=== PATIENT | female | born 1940 | race Caucasian/White ===

== ENCOUNTER 2017-01-04 19:52 | Inpatient (IN) | payer MEDICARE ==
[~2017-01-04] VITALS: Ht 170.2 cm; Wt 68.6 kg
[~2017-01-04 19:52] MED LIST: ABILIFY2 MG PO; CALTRATE 600 M600 M1 PO; CARDURA1 MG PO; GABAPENTIN100 MG PO; HYZAAR 100-25 T1 TAB PO; MECLIZINE HCL25 MG PO; MOBIC7.5 MG PO; NORVASC2.5 MG PO; RISPERDAL0.25 MG PO; TIAZAC/CARDIZE180 MG PO; XANAX0.25 MG PO; XARELTO20 MG PO
[2017-01-04 21:50] LABS: APPEARANCE CLEAR (CLEAR); BACTERIA FEW /hpf (NONE SEEN); BILIRUBIN NEGATIVE (NEGATIVE); COLOR YELLOW (YELLOW); EPITHELIAL CELLS 0-5 /hpf (0-5); GLUCOSE NEGATIVE (NEGATIVE); KETONE NEGATIVE (NEGATIVE); LEUKOCYTE ESTERASE 1+ (NEGATIVE); NITRITE NEGATIVE (NEGATIVE); PROTEIN NEGATIVE (NEGATIVE); SPECIFIC GRAVITY 1.015 (1.005-1.020); UROBILINOGEN NORMAL (NORMAL)
[2017-01-04 22:07] LABS: BASOPHILS 0.2 % (0.0-2.0); EOSINOPHILS 2.1 % (0-7); HEMATOCRIT 36.7 % (36.0-48.0); HEMOGLOBIN 12.2 g/dL (12-16); IMMATURE GRANULOCYTES 0.2 % (0-5); LYMPHOCYTES 21.5 % (15-50); MCH 33.2 pg (26.0-34.0); MCHC 33.2 g/dL (31.0-37.0); MCV 99.7 fL (80.0-100.0); MEAN PLATELET VOLUME 9.8 fL (7.4-10.4); MONOCYTES 12.6 % (2-11); NEUTROPHILS 63.4 % (40-80); PLATELET COUNT 201 10x3/uL (130-400); RBC 3.68 10x6/uL (4.00-5.40); RDW 12.4 % (11.5-14.5); WBC 8.1 10x3/uL (4.8-10.8)
[2017-01-04 22:25] LABS: ALBUMIN 3.3 g/dL (3.4-5.0); ANION GAP 10.4 mmol/L (8-16); BILIRUBIN - TOTAL 0.44 mg/dL (0.2-1.3); CALCIUM 8.6 mg/dL (8.5-10.1); CARBON DIOXIDE 29.6 mmol/L (21.0-32.0); CREATININE - SERUM 0.8 mg/dL (0.6-1.3); PROTEIN - SERUM 6.3 g/dL (6.4-8.2)
[2017-01-04 22:52] LABS: TROPONIN-I 0.016 ng/mL (0.000-0.060)
[2017-01-04] MEDS ORDERED: CYMBALTA60 MG PO (23:28)
[2017-01-04] MEDS ORDERED: PRINIVIL20 MG PO (23:30)
[2017-01-04] MEDS ORDERED: LOVASTATIN40 MG PO (23:32)
[2017-01-04] MEDS ORDERED: OXYBUTYNIN CHLOR5 MG PO (23:33)
[2017-01-04] MEDS ORDERED: BETAPACE 80 MG80 MG PO (23:34)
[2017-01-04] MEDS ORDERED: NEURONTIN 300300 MG PO (23:35)
[2017-01-04] MEDS ORDERED: AMBIEN10 MG PO (23:39)
[2017-01-04 23:40] VITALS: BP 168/67; Ht 170.2 cm; Wt 68.6 kg
[2017-01-05] VITALS: BP 168/67
[2017-01-05 04:00] VITALS: BP 149/65
--- NOTE | 2017-01-05 07:28 | NUR ---
ASSESSED AT THE TIME OF ADMIT TO ROOM. PT IS ALERT AND ORIENTED, ABLE TO VERBALIZE NEEDS. HER GRANDAUGHTER SPENT THE NIGHT WITH HER AND ASSISTED WITH GOING TO THE BATHROOM ALSO. SHE HAS SLEPT MOST OF THE NIGHT WITH NO DISTRESS NOTED. THE BED IS LOW, RAILS UP X'S 2 WITH THE CALL LIGHT AT HAND.
[2017-01-05 07:40] VITALS: BP 140/53
--- NOTE | 2017-01-05 07:57 | NUR ---
ALERT AND ORIENTED, DENIES NEEDS, NO COMPLAINTS OF WEAKNESS, NO SLURRED SPEACH, NEURO CHECKS WNL, CALL LIGHT IN REACH, BED LOWEST POSITION, WILL CONTINUE TO MONITOR
--- NOTE | 2017-01-05 08:25 | NUR ---
AWAKE AND ALERT AT THIS TIME. EATING BREAKFAST. RESPIRATIONS EVEN AND NON LABORED. FAMILY AT BEDSIDE. DENIES NEEDS AT THIS TIME, CALL LIGHT IN REACH. WILL CONTINUE WITH PLAN OF CARE.
[2017-01-05 15:23] VITALS: BP 139/85
--- NOTE | 2017-01-05 19:55 | NUR ---
PT LYING IN BED TALKING WITH VISITOR, ASSESSMENT COMPLETED, NO ACUTE DISTRESS NOTED, DENIES PAIN OR NEEDS AT THIS TIME, FALL PRECAUTIONS IN PLACE, CL IN REACH, WILL MONITOR
[2017-01-05 20:00] VITALS: BP 116/78
--- NOTE | 2017-01-05 20:34 | NUR ---
PRN ABMIEN GIVEN PER PT REQUEST FOR SLEEP ALONG WITH ROUTINE MEDS, RUDDY WELL, DENIES FURTHER NEEDS, CL IN REACH
--- NOTE | 2017-01-05 23:15 | NUR ---
RESTING WITH EYES CLOSED, RESP WITH EASE, NO DISTRESS NOTED, FALL PRECAUTIONS IN PLACE, CL IN REACH
[2017-01-06] VITALS: BP 133/85
[2017-01-06 04:00] VITALS: BP 122/71
[2017-01-06 06:58] LABS: CALCIUM 8.8 mg/dL (8.5-10.1); CARBON DIOXIDE 28.3 mmol/L (21.0-32.0); CREATININE - SERUM 0.8 mg/dL (0.6-1.3); POTASSIUM - SERUM 3.3 mmol/L (3.5-5.1)
[2017-01-06 08:38] VITALS: BP 128/78
--- NOTE | 2017-01-06 09:39 | NUR ---
PRN BENTYL ADMINISTERED WITH MORNING MEDS PER PT COMPLAINTS OF ABD CRAMPING AND PAIN IN STOMACH OF 01/22. WILL REASSESS. PT UP AMBULATING AROUND ROOM W/O DIFFICULTY. DAUGHTER AT BEDSIDE. BED LOW, CALL LIGHT IN REACH, DENIES NEEDS. CPOC.
[2017-01-06 13:04] VITALS: BP 144/62
[2017-01-06] MEDS ORDERED: PLAVIX75 MG PO (15:06)
[2017-01-06] MEDS ORDERED: BENTYL 20 MG TA20 MG PO (15:06)
[2017-01-06] MEDS ORDERED: K-TAB10 MEQ PO (15:07)
[2017-01-06] MEDS ORDERED: CARAFATE1 G PO (15:07)
--- NOTE | 2017-01-06 17:18 | NUR ---
MEDICATIONS E-SCRIBED TO [facility], WHICH HAS ALREADY CLOSED. MEDS CALLED TO [facility] ON [address] (PER PATIENT REQUEST). SPOKE WITH SYLVIA PHARMACIST.
--- NOTE | 2017-01-12 14:54 | EC ---
PATIENT:LIBIA SIERRA DATE OF SERVICE: 01/04/17 SEX: F MEDICAL RECORD: [id number] DATE OF : 38 LOCATION:[facility] AGE OF PATIENT: 76 ADMISSION DATE: 01/05/17 REFERRING PHYSICIAN: INTERPRETING PHYSICIAN: QUEENIE HAJI M.D. ECHOCARDIOGRAM REPORT ECHO CHARGES 4 ECHO COMPLETE CLINICAL DIAGNOSIS: ECHOCARDIOGRAPHIC MEASUREMENTS (adult normal given) AC root (d.<3.7cm) 3.5 LV Septum d (<1.2 cm> 1.6 Valve Excursion 2.0 LV Septum (systole) 1.9 Left Atria (s.<4.0cm> 3.8 LVPW d(<1.2cm) 1.5 RV (d.<2.3cm) 4.3 LVPW (sytole) 1.9 LV diastole(<5.6CM) 4.9 MV E-F(>70mm/sec) LV systole 3.0 LVOT Diameter 1.6 MV exc.(>10mm) 1.4 Est.ejection fraction (50-75%) Pericardial Effusion N DOPPLER: LVIT A 95.0 E 114 LA RVSP 39 LVOT 119 AOP1/2T Asc. Ao 164 RVOT 90 RA PA 136 AV Gradient Peak 10.73 AV Mean 5.63 AV Area 1.6 MV Gradient Peak 8.73 MV Mean 3.03 MV Area COMMENTS: Monorail Operator: Jessi NUNEZ Log Handler:2 Dr. Haji TAPE# PACS DATE OF SERVICE: 01/05/2017 REFERRING PHYSICIAN: Franck Serrano MD INDICATIONS: TIA, atrial fibrillation. DESCRIPTION: Left ventricle demonstrates left ventricular hypertrophy. No wall motion abnormalities are noted. Estimated ejection fraction is 60%. Mitral valve structures are normal. There is mild regurgitation seen. Left atrium is normal in size. The aortic valve is trileaflet. There is no stenosis or ECHOCARDIOGRAM REPORT [id number] LIBIA SIERRA regurgitation seen. Right ventricle is mildly dilated. Tricuspid valve is normal. There is mild regurgitation noted. Right atrium is normal size. There is no pericardial effusion seen. IMPRESSION: 1. Left ventricular hypertrophy with preserved ejection fraction of 60%. 2. Mild mitral regurgitation. 3. Mild tricuspid regurgitation. TRANSINT:[id number] Voice Confirmation ID: [id number] DOCUMENT ID: [id number] QUEENIE HAJI M.D. at 1454 CC: [id number] DICTATION DATE: 01/05/17 1315 PREMISES TECHNICIAN: 01/05/17 1518 DIS IN 01/06/17 [place] [id number] [place] [id number]
== END 2017-01-06 13:30 | disposition home or self-care (01) | DRG 69 ==
LOC: D.ER 19:52 → OBSVTIME 22:43 → D.MS 22:43
PROVIDERS: Family Medicine; ADMIT Family Medicine
DX: G45.9 Transient cerebral ischemic attack, unspecified (principal); I48.0 Paroxysmal atrial fibrillation; R10.9 Unspecified abdominal pain; I10 Essential (primary) hypertension; E87.6 Hypokalemia; I08.1 Rheumatic disorders of both mitral and tricuspid valves; Z87.891 Personal history of nicotine dependence

== ENCOUNTER 2017-01-07 19:21 | Emergency (ER) | payer MEDICARE ==
[2017-01-04 23:40] VITALS: BMI 23.7
[~2017-01-07 19:21] MED LIST changes: +AMBIEN10 MG PO; +BENTYL 20 MG TA20 MG PO; +BETAPACE 80 MG80 MG PO; +CARAFATE1 G PO; +CYMBALTA60 MG PO; +K-TAB10 MEQ PO; +LOVASTATIN40 MG PO; +NEURONTIN 300300 MG PO; +OXYBUTYNIN CHLOR5 MG PO; +PLAVIX75 MG PO; +PRINIVIL20 MG PO
[2017-01-07 20:06] LABS: HEMATOCRIT 36.1 % (36.0-48.0); HEMOGLOBIN 12.4 g/dL (12-16); MCHC 34.3 g/dL (31.0-37.0); MCV 98.9 fL (80.0-100.0); MEAN PLATELET VOLUME 9.3 fL (7.4-10.4); PLATELET COUNT 211 10x3/uL (130-400); RBC 3.65 10x6/uL (4.00-5.40); RDW 12.6 % (11.5-14.5); WBC 6.8 10x3/uL (4.8-10.8)
[2017-01-07 20:14] LABS: APTT 26.7 SECONDS (22.8-39.4); INR 1.01 (0.85-1.17); PROTIME 13.1 SECONDS (11.6-15.0)
[2017-01-07 20:24] LABS: ALBUMIN 3.3 g/dL (3.4-5.0); ANION GAP 10.7 mmol/L (8-16); BILIRUBIN - TOTAL 0.48 mg/dL (0.2-1.3); CALCIUM 8.9 mg/dL (8.5-10.1); CARBON DIOXIDE 28.5 mmol/L (21.0-32.0); POTASSIUM - SERUM 3.2 mmol/L (3.5-5.1); PROTEIN - SERUM 6.2 g/dL (6.4-8.2)
[2017-01-07 20:25] LABS: CREATININE - SERUM 1.1 mg/dL (0.6-1.3)
[2017-01-07 20:30] LABS: BASOPHILS 1 % (0.0-2.0); EOSINOPHILS 3 % (0-7); LYMPHOCYTES 26 % (15-50); MONOCYTES 14 % (2-11); NEUTROPHILS 54 % (40-80); PLATELET ESTIMATE NORMAL
== END 2017-01-07 21:35 | disposition home or self-care (01) ==
LOC: D.ER 19:21
PROVIDERS: Family Medicine
DX: G45.9 Transient cerebral ischemic attack, unspecified (principal); F17.200 Nicotine dependence, unspecified, uncomplicated; I48.2 Chronic atrial fibrillation; I10 Essential (primary) hypertension

== ENCOUNTER 2017-12-02 10:07 | Emergency (ER) | payer MEDICARE ==
[2017-01-04 23:40] VITALS: BMI 23.7
[2017-12-02 11:05] LABS: ALBUMIN 3.7 g/dL (3.4-5.0); ANION GAP 10.6 mmol/L (8-16); BILIRUBIN - TOTAL 0.65 mg/dL (0.2-1.3); CALCIUM 8.9 mg/dL (8.5-10.1); CARBON DIOXIDE 28.4 mmol/L (21.0-32.0); PROTEIN - SERUM 6.7 g/dL (6.4-8.2)
[2017-12-02 11:46] LABS: APPEARANCE CLEAR (CLEAR); COLOR YELLOW (YELLOW)
[2017-12-02 11:47] LABS: BACTERIA MODERATE /hpf (NONE SEEN); BILIRUBIN NEGATIVE (NEGATIVE); EPITHELIAL CELLS 0-5 /hpf (0-5); GLUCOSE NEGATIVE (NEGATIVE); GRANULAR CAST NONE SEEN /lpf (NONE SEEN); HYALINE CAST OCC /lpf (NONE SEEN); KETONE NEGATIVE (NEGATIVE); MUCUS NONE SEEN /lpf (NONE SEEN); NITRITE NEGATIVE (NEGATIVE); PROTEIN NEGATIVE (NEGATIVE); RED CELLS - URINE OCC /hpf (0-5); SPECIFIC GRAVITY 1.015 (1.005-1.020); SPERMATOZOA NONE SEEN /hpf (NONE SEEN); UROBILINOGEN NORMAL (NORMAL); WHITE CELLS - URINE OCC /hpf (0-5); YEAST NONE SEEN /hpf (NONE SEEN)
== END 2017-12-02 12:32 | disposition home or self-care (01) ==
LOC: D.ER 10:07
PROVIDERS: Nurse Practitioner Family
DX: I10 Essential (primary) hypertension (principal); I48.2 Chronic atrial fibrillation; Z86.73 Personal history of transient ischemic attack (TIA), and cerebral infarction without residual deficits; R00.1 Bradycardia, unspecified; I44.0 Atrioventricular block, first degree

== ENCOUNTER → 2019-04-21 13:52 | Outpatient (CLI) | payer MEDICARE ==
[2017-01-04 23:40] VITALS: BMI 23.7
== END | disposition home or self-care (01) ==
LOC: D.HCCARDIO 13:30
PROVIDERS: ATTEND Internal Medicine Cardiovascular Disease
DX: I48.0 Paroxysmal atrial fibrillation (principal)

== ENCOUNTER 2020-02-07 09:15 | Emergency (ER) | payer MEDICARE ==
[~2020-02-07] VITALS: Ht 170.2 cm; Wt 65.9 kg
[2020-02-07 09:17] VITALS: Ht 170.2 cm; Wt 65.9 kg
[2020-02-07 09:32] LABS: BASOPHILS 0.1 % (0-2); EOSINOPHILS 0.1 % (0-7); HEMATOCRIT 44.2 % (36.0-48.0); IMMATURE GRANULOCYTES 0.7 % (0-5); LYMPHOCYTES 6.3 % (15-50); MCH 34.4 pg (26.0-34.0); MCHC 33.9 g/dL (31.0-37.0); MCV 101.4 fL (80.0-100.0); MEAN PLATELET VOLUME 10.2 fL (7.4-10.4); MONOCYTES 5.7 % (2-11); NEUTROPHILS 87.1 % (40-80); RBC 4.36 10x6/uL (4.00-5.40); RDW 12.8 % (11.5-14.5); WBC 8.6 10x3/uL (4.8-10.8)
[2020-02-07 09:33] LABS: PLATELET COUNT 141 10x3/uL (130-400)
[2020-02-07 09:40] LABS: CALC OSMOLALITY 270 mosm/kg (275-300); CALCIUM 9.2 mg/dL (8.5-10.1); CHLORIDE - SERUM 97 mmol/L (98-107); CREATININE - SERUM 0.9 mg/dL (0.6-1.3); GLUCOSE 127 mg/dL (74-106); POTASSIUM - SERUM 3.7 mmol/L (3.5-5.1); SODIUM 134 mmol/L (136-145); UREA NITROGEN 14 mg/dL (7-18); eGFR NON AFRICAN AMERICAN 64 mL/min (90-120)
[2020-02-07 09:42] LABS: APTT 42.8 SECONDS (22.8-39.4); INR 1.42 (0.85-1.17); PROTIME 17.3 SECONDS (11.6-15.0)
[2020-02-07] MEDS ORDERED: CELEXA20 MG PO (09:56)
[2020-02-07 09:57] LABS: ALBUMIN 4.4 g/dL (3.4-5.0); ALKALINE PHOSPHATASE 119 U/L (30-120); ALT (SGPT) 98 U/L (10-68); BILIRUBIN - TOTAL 1.43 mg/dL (0.2-1.3); CKMB 6.3 U/L (0.0-3.6); CREATINE KINASE 525 UL (21-215); MAGNESIUM - SERUM 1.9 mg/dL (1.8-2.4); PROTEIN - SERUM 8.1 g/dL (6.4-8.2); TROPONIN-I < 0.017 ng/mL (0.000-0.060)
[2020-02-07] MEDS ORDERED: BETAPACE 80 MG80 MG PO (09:57)
[2020-02-07] MEDS ORDERED: OMEPRAZOLE20 M1 PO (09:58)
[2020-02-07] MEDS ORDERED: SYSTANE I (09:58)
[2020-02-07] MEDS ORDERED: COUMADIN5 MG (10:00)
[2020-02-07] MEDS ORDERED: GABAPENTIN100 MG PO (10:01)
[2020-02-07] MEDS ORDERED: HYDROCODON-ACE1 EAC2 PO (12:37)
[2020-02-07 13:45] VITALS: BP 147/85
[2020-02-08] MEDS ORDERED: HYDROCODON-ACE1 EAC7 PO (09:19)
[2020-02-08] MEDS ORDERED: LASIX20 MG PO (09:21)
== END 2020-02-07 13:45 | disposition home or self-care (01) ==
LOC: D.ER 09:15
PROVIDERS: Emergency Medicine
DX: I48.91 Unspecified atrial fibrillation (principal); T14.90XA Injury, unspecified, initial encounter; R74.8 Abnormal levels of other serum enzymes; R42 Dizziness and giddiness; S09.90XA Unspecified injury of head, initial encounter; E07.9 Disorder of thyroid, unspecified; I10 Essential (primary) hypertension; R55 Syncope and collapse; W19.XXXA Unspecified fall, initial encounter; Y93.9 Activity, unspecified; Y92.9 Unspecified place or not applicable; R51 Headache

== ENCOUNTER 2020-02-08 04:31 | Emergency (ER) | payer MEDICARE ==
[~2020-02-08] VITALS: Ht 170.2 cm; Wt 63.6 kg
[~2020-02-08 04:31] MED LIST changes: +CELEXA20 MG PO; +COUMADIN5 MG; +HYDROCODON-ACE1 EAC2 PO; +OMEPRAZOLE20 M1 PO; +SYSTANE I
[2020-02-08 04:32] VITALS: Ht 170.2 cm; Wt 63.6 kg
[2020-02-08 04:51] LABS: BASOPHILS 0.1 % (0-2); EOSINOPHILS 0 % (0-7); HEMATOCRIT 43.2 % (36.0-48.0); HEMOGLOBIN 14.7 g/dL (12-16); IMMATURE GRANULOCYTES 0.2 % (0-5); LYMPHOCYTES 6.9 % (15-50); MCH 33.6 pg (26.0-34.0); MEAN PLATELET VOLUME 9.5 fL (7.4-10.4); MONOCYTES 8.4 % (2-11); NEUTROPHILS 84.4 % (40-80); RBC 4.38 10x6/uL (4.00-5.40); RDW 12.5 % (11.5-14.5)
[2020-02-08 04:52] LABS: MCV 98.6 fL (80.0-100.0); PLATELET COUNT 170 10x3/uL (130-400); WBC 12.5 10x3/uL (4.8-10.8)
[2020-02-08 04:59] LABS: CALC OSMOLALITY 266 mosm/kg (275-300); CALCIUM 9.2 mg/dL (8.5-10.1); CHLORIDE - SERUM 95 mmol/L (98-107); CREATININE - SERUM 1.5 mg/dL (0.6-1.3); GLUCOSE 140 mg/dL (74-106); POTASSIUM - SERUM 3.2 mmol/L (3.5-5.1); SODIUM 130 mmol/L (136-145); UREA NITROGEN 25 mg/dL (7-18); eGFR NON AFRICAN AMERICAN 35 mL/min (90-120)
[2020-02-08 05:00] LABS: INR 1.65 (0.85-1.17); PROTIME 19.3 SECONDS (11.6-15.0)
[2020-02-08 05:02] LABS: BILIRUBIN NEGATIVE (NEGATIVE); GLUCOSE NEGATIVE (NEGATIVE); KETONE MODERATE mg/dL (NEGATIVE); NITRITE NEGATIVE (NEGATIVE); SPECIFIC GRAVITY 1.015 (1.005-1.020); UROBILINOGEN NORMAL (NORMAL)
[2020-02-08 05:03] LABS: WHITE CELLS - URINE 0-5 /hpf (NEGATIVE)
[2020-02-08 05:24] LABS: ALBUMIN 3.7 g/dL (3.4-5.0); ALKALINE PHOSPHATASE 101 U/L (30-120); ALT (SGPT) 81 U/L (10-68); AMYLASE - SERUM 65 U/L (25-115); BILIRUBIN - TOTAL 1.48 mg/dL (0.2-1.3); CREATINE KINASE 612 UL (21-215); LIPASE 106 U/L (73-393); PRO BNP 9308 pg/mL (0-450); PROTEIN - SERUM 7.1 g/dL (6.4-8.2); TROPONIN-I < 0.017 ng/mL (0.000-0.060)
[2020-02-08 05:25] LABS: CKMB 8.7 U/L (0.0-3.6)
[2020-02-08] MEDS ORDERED: HYDROCODON-ACE1 EAC7 PO (09:19)
[2020-02-08] MEDS ORDERED: LASIX20 MG PO (09:21)
[2020-02-08 09:33] VITALS: BP 142/92
== END 2020-02-08 09:34 | disposition home or self-care (01) ==
LOC: D.ER 04:31
PROVIDERS: Emergency Medicine
DX: R31.9 Hematuria, unspecified (principal); R10.9 Unspecified abdominal pain; R94.5 Abnormal results of liver function studies; N17.9 Acute kidney failure, unspecified; I11.0 Hypertensive heart disease with heart failure; I50.9 Heart failure, unspecified; E87.6 Hypokalemia; E87.1 Hypo-osmolality and hyponatremia; S05.11XA Contusion of eyeball and orbital tissues, right eye, initial encounter; N28.0 Ischemia and infarction of kidney; I48.91 Unspecified atrial fibrillation; Z86.73 Personal history of transient ischemic attack (TIA), and cerebral infarction without residual deficits; E07.9 Disorder of thyroid, unspecified

== ENCOUNTER 2020-02-10 13:31 | Inpatient (IN) | payer MEDICARE ==
[~2020-02-10] VITALS: Ht 170.2 cm; Wt 62.5 kg
[~2020-02-10 13:31] MED LIST changes: +HYDROCODON-ACE1 EAC7 PO; +LASIX20 MG PO
--- NOTE | 2020-02-10 14:30 | NUR ---
PT RECEIVED FROM ER REGISTRATION PT DENIES NEEDS RESTING COMFOTABLY ASSESSMENT COMPLETE PER FLOW SHEET. WILL CONTINUE TO MONITOR
[2020-02-10 14:33] VITALS: BP 165/99
[2020-02-10 15:00] VITALS: BP 165/99
--- NOTE | 2020-02-10 16:10 | NUR ---
DR GILMAR JUARES GIVEN UPDATE REGAURDING CONSULT. T ORDER RECEIVED. WILL ADM.
--- NOTE | 2020-02-10 17:12 | NUR ---
PT BACK FROM MRI, PLACED BACK IN BED, NO OTHER NEEDS NOTED
[2020-02-10 18:16] LABS: BASOPHILS 0.1 % (0-2); EOSINOPHILS 0 % (0-7); HEMATOCRIT 43.7 % (36.0-48.0); HEMOGLOBIN 14.8 g/dL (12-16); IMMATURE GRANULOCYTES 0.3 % (0-5); LYMPHOCYTES 8.2 % (15-50); MCH 33.9 pg (26.0-34.0); MCHC 33.9 g/dL (31.0-37.0); MEAN PLATELET VOLUME 9.7 fL (7.4-10.4); MONOCYTES 9.4 % (2-11); PLATELET COUNT 166 10x3/uL (130-400); RBC 4.37 10x6/uL (4.00-5.40); RDW 12.7 % (11.5-14.5)
[2020-02-10 18:36] LABS: APTT 36.1 SECONDS (22.8-39.4); INR 1.65 (0.85-1.17); PROTIME 19.3 SECONDS (11.6-15.0)
[2020-02-10 18:37] LABS: D-DIMER-QUANTITATIVE 1.44 ug/mLFEU (0.20-0.54)
[2020-02-10 18:44] LABS: ANION GAP 11.1 mmol/L (8-16); BILIRUBIN - TOTAL 0.85 mg/dL (0.2-1.3); CALCIUM 8.8 mg/dL (8.5-10.1); CARBON DIOXIDE 31.2 mmol/L (21.0-32.0); CREATININE - SERUM 1.2 mg/dL (0.6-1.3); POTASSIUM - SERUM 3.3 mmol/L (3.5-5.1); PROTEIN - SERUM 6.6 g/dL (6.4-8.2); THYROID STIMULATING HORMONE 0.39 uIU/mL (0.36-3.74)
[2020-02-10 19:00] VITALS: BP 172/96
[2020-02-10 23:00] VITALS: BP 156/100
[2020-02-11] VITALS (15 sets, daily range): BP systolic 107–166; BP diastolic 71–115; Ht 170.2 cm; Wt 62.5 kg
[2020-02-11 03:14] LABS: BASOPHILS 0.1 % (0-2); EOSINOPHILS 0.1 % (0-7); HEMOGLOBIN 14.2 g/dL (12-16); IMMATURE GRANULOCYTES 0.2 % (0-5); LYMPHOCYTES 10.7 % (15-50); MCH 33.7 pg (26.0-34.0); MCHC 33.8 g/dL (31.0-37.0); MCV 99.8 fL (80.0-100.0); MEAN PLATELET VOLUME 9.7 fL (7.4-10.4); MONOCYTES 12.5 % (2-11); NEUTROPHILS 76.4 % (40-80); PLATELET COUNT 177 10x3/uL (130-400); RBC 4.21 10x6/uL (4.00-5.40); RDW 12.7 % (11.5-14.5); WBC 11.2 10x3/uL (4.8-10.8)
[2020-02-11 03:33] LABS: ALBUMIN 2.9 g/dL (3.4-5.0); ANION GAP 12.3 mmol/L (8-16); BILIRUBIN - TOTAL 0.98 mg/dL (0.2-1.3); CALCIUM 8.7 mg/dL (8.5-10.1); CARBON DIOXIDE 29.5 mmol/L (21.0-32.0); CREATININE - SERUM 1.2 mg/dL (0.6-1.3); POTASSIUM - SERUM 3.8 mmol/L (3.5-5.1); PROTEIN - SERUM 6.3 g/dL (6.4-8.2)
--- NOTE | 2020-02-11 07:00 | NUR ---
REPORT RECIEVED, SHIFT ASSESSMENT COMPLETE, PT IS ALERT AND ORIENTED, ON RA WITH 97% O2 SAT, ALL PPP, VSS, CALL LIGHT IN REACH
--- NOTE | 2020-02-11 07:49 | NUR ---
UPDATE GIVEN TO DR. SCHAFER AT THIS TIME, NO NEW ORDERS
--- NOTE | 2020-02-11 07:50 | NUR ---
INFORMED DR. PHILLIPS OF DR. SCHAFER WISH TO SPEAK WITH HIM
--- NOTE | 2020-02-11 08:08 | NUR ---
UPDATE GIVEN TO DR. PHILLIPS, NEW ORDERS RECIEVED,
--- NOTE | 2020-02-11 08:08 | NUR ---
UPDATE GIVEN TO DR. SCHAFER, NEW ORDERS RECIEVED
--- NOTE | 2020-02-11 08:15 | NUR ---
CONSULT CALLED TO DR. WHITING, NEW ORDERS RECIEVED,
--- NOTE | 2020-02-11 11:05 | NUR ---
REASSESSMENT COMPLETE, NO CHANGES NOTED, PT RESTING AT THIS TIME, VSS, CALL LIGHT IN REACH
--- NOTE | 2020-02-11 11:20 | NUR ---
DR. WHITING AT BEDSIDE, UPDATE GIVEN,
[2020-02-11 12:12] LABS: BILIRUBIN NEGATIVE (NEGATIVE); GLUCOSE NEGATIVE (NEGATIVE); KETONE NEGATIVE (NEGATIVE); NITRITE NEGATIVE (NEGATIVE); SPECIFIC GRAVITY 1.005 (1.005-1.020); UROBILINOGEN NORMAL (NORMAL)
[2020-02-11 12:14] LABS: BACTERIA MODERATE /hpf (NEGATIVE); EPITHELIAL CELLS 0-5 /hpf (0-5); RED CELLS - URINE 0-5 /hpf (0-5); WHITE CELLS - URINE 0-5 /hpf (NEGATIVE)
--- NOTE | 2020-02-11 19:00 | NUR ---
SHIFT ASSESSMENT COMPLETED. PT CARE ASSUMED. MONITORS ON AND WORKING, VITALS STABLE. CALL LIGHT WITHIN REACH, SEE FLOW SHEET FOR FURTHER DETAILS. WILL CONTINUE TO OBSERVE.
--- NOTE | 2020-02-11 23:00 | NUR ---
PT TURNED AND REPOSITIONED FOR COMFORT. PT AAO, MONITORS ON AND WORKING, VITALS STABLE. CALL LIGHT WITHIN REACH, PT DROWSY BUT EASY TO AROUSE. SPOKE WITH PTS DAUGHTER, PASSCODE CONFIRMED AND UPDATE PROVIDED. SEE FLOW SHEET FOR FURTHER DETAILS. WILL CONTINUE TO OBSERVE.
[2020-02-12] VITALS (26 sets, daily range): BP systolic 98–183; BP diastolic 49–99
--- NOTE | 2020-02-12 01:00 | NUR ---
PT LYING IN BED RESTING. MONITORS ON AND WORKING, VITALS STABLE. CALL LIGHT WITHIN REACH. WILL CONTINUE TO OBSERVE.
--- NOTE | 2020-02-12 03:00 | NUR ---
NO CHANGES, MONITORS ON AND WORKING, VITALS STABLE, CALL LIGHT WITHIN REACH, SEE FLOW SHEET FOR FURTHER DETAILS, WILL CONTINUE TO OBSERVE.
[2020-02-12 03:23] LABS: BASOPHILS 0.1 % (0-2); EOSINOPHILS 0.3 % (0-7); HEMATOCRIT 45.7 % (36.0-48.0); HEMOGLOBIN 15.3 g/dL (12-16); IMMATURE GRANULOCYTES 0.1 % (0-5); LYMPHOCYTES 17.4 % (15-50); MCH 33.5 pg (26.0-34.0); MCHC 33.5 g/dL (31.0-37.0); MEAN PLATELET VOLUME 9.7 fL (7.4-10.4); MONOCYTES 13.9 % (2-11); NEUTROPHILS 68.2 % (40-80); PLATELET COUNT 190 10x3/uL (130-400); RBC 4.57 10x6/uL (4.00-5.40); RDW 12.8 % (11.5-14.5); WBC 8.6 10x3/uL (4.8-10.8)
[2020-02-12 03:44] LABS: ALBUMIN 3.1 g/dL (3.4-5.0); ANION GAP 8.3 mmol/L (8-16); BILIRUBIN - TOTAL 0.99 mg/dL (0.2-1.3); CALCIUM 8.6 mg/dL (8.5-10.1); CARBON DIOXIDE 32.9 mmol/L (21.0-32.0); CREATININE - SERUM 1.3 mg/dL (0.6-1.3); POTASSIUM - SERUM 3.2 mmol/L (3.5-5.1)
--- NOTE | 2020-02-12 07:00 | NUR ---
TO OR VIA BED.
--- NOTE | 2020-02-12 09:55 | NUR ---
PATIENT PLACED IN HUTCHINSON HEADREST AND PRONE ALL AREAS PADDED SECURED WITH NO IMPINGEMENTS, DR WHITING PRESENT AND ASSISTINGJEFF.
--- NOTE | 2020-02-12 12:00 | NUR ---
OT NOTE: PT IN FOR SURGERY TODAY. WILL ATTEMPT EVAL TOMORROW. SHAHEEN ENCISO, OTR/L
--- NOTE | 2020-02-12 12:36 | NUR ---
1150 RETURNED TO ROOM POST-OP FROM RECOVERY INITIATED FREQUENT VITAL SIGNS
--- NOTE | 2020-02-12 13:10 | NUR ---
1200 ALERT AND ANSWERS APPROPRIATELY ASSESSMENT COMPLETE
--- NOTE | 2020-02-12 13:12 | NUR ---
1208 C/O HEAD PAIN 06/24 TYLENOL #3 1 PO GIVEN
--- NOTE | 2020-02-12 13:13 | NUR ---
1219 SMALL AMOUNT THIN GREEN EMESIS NOTED ASSISTED WITH YANKEUR ORAL SUCTION
--- NOTE | 2020-02-12 13:14 | NUR ---
1209 HYDRALIZINE 10 MG IV GIVEN FOR BP CHARTED
--- NOTE | 2020-02-12 13:18 | NUR ---
1222 BLOOD PRESSURE 183/65 LABETALOL GIVEN IV. SEE MAR
--- NOTE | 2020-02-12 13:19 | NUR ---
1230 BP 160/55 PATIENT RESTING QUIETLY WITH NO DISTRESS NOTED
--- NOTE | 2020-02-12 14:09 | CN ---
PATIENT NAME:LIBIA SIERRA MEDICAL RECORD: [id number] : 38 LOCATION:[facility].2302 ADMIT DATE: 02/10/20 ACCOUNT: [id number] CONSULTING PHYSICIAN: MICHAEL QUISPE MD REFERRING PHYSICIAN: BEHZAD PHILLIPS MD DATE OF CONSULTATION: 02/11/2020 HISTORY OF PRESENT ILLNESS: An 79-year-old female with a history of atrial fibrillation. She was previously on NOAC with Eliquis. Due to financial constraints, was being switched over to Coumadin, had a fall at home. Subsequently, anticoagulation was held, then had a CVA have prompting her admission. She is actually alert and oriented, conversant. Is in underlying atrial fibrillation with controlled rate. We are asked to see her concerning her cardiovascular status. PAST MEDICAL HISTORY: Includes; 1. History of hypertension. 2. Hyperlipidemia. 3. Hypertension. ALLERGIES: PENICILLIN. MEDICATIONS: Typically include Lisinopril 20 mg p.o. b.i.d., Lovastatin 40 every day, sotalol 40 every day, Celexa 20 every day, Neurontin 100 t.i.d., Ambien 10 at bedtime p.r.n. SOCIAL HISTORY: Nonsmoker, nondrinker, previously was able to take care of most of her ADLs. Good family support with daughter. REVIEW OF SYSTEMS: The patient reports easy bruising but reports no swollen glands. The patient reports no fever, no night sweats, no significant weight gain, no significant weight loss. No significant exercise tolerance. The patient reports no dry eyes, no irritation, no vision change. Patient reports no difficulty hearing and no ear pain. Patient reports no frequent nose bleeds or nose and sinus problems. Patient reports on arm pain on exertion. No shortness of breath while lying down. No history of heart murmur. Patient reports no cough, no wheezing or coughing up blood. Patient reports no abdominal pain, no vomiting. Normal appetite. No diarrhea and not vomiting blood. No nausea and no constipation. Patient reports no incontinence. No difficulty urinating. No hematuria. No increased frequency. Patient reports no muscle aches. No weakness, no arthralgias, no back pain. No swelling of the extremities. Patient reports no abnormal mole, no jaundice, no rashes. Reports no loss of consciousness. No weakness and no numbness. No seizures, dizziness, or headaches. The patient reports no depression, no sleep disturbance, feeling safe in a relationship and no alcohol abuse. Patient reports on fatigue. Reports no runny nose or sinus pressure. No itching, no hives, and no frequent sneezing. PHYSICAL EXAMINATION: GENERAL: Pleasant female in no acute distress, appears stated age. VITAL SIGNS: Blood pressure 164/105, pulse 67 and irregular. HEENT: Large ecchymotic area involving the right orbit. NECK: No bruits noted. HEART: Irregular, rate is controlled, II/ systolic ejection murmur. LUNGS: Good air excursion. CONSULT REPORT [id number] LIBIA SIERRA ABDOMEN: Soft, nontender. EXTREMITIES: Pulses are well preserved, 2+ with no edema. 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 With the patient switching from NOAC to warfarin etc., does have some edema via MRI and may require neurosurgery at some point. No contraindication of this. Actually, left ventricular function is normal, so certainly acceptable risk at this point from a cardiovascular standpoint. We will follow with you. Thank you for the consultation. TRANSINT:[id number] Voice Confirmation ID: [id number] DOCUMENT ID: [id number] MICHAEL QUISPE MD at 1409 CC: [id number] DICTATION DATE: 02/11/20 0848 RESOURCE ROOM TEACHER: 02/11/20 1540 ADM IN [place] [id number] [place] [address]
--- NOTE | 2020-02-12 16:08 | MORECARE ---
CASE MANAGEMENT DISCHARGE SUMMARY PATIENT: LIBIA SIERRA UNIT: [id number] ADM DATE: 02/10/20 AGE: 79 : 39 SEX: F ROOM/BED: D.2302 AUTHOR: JAYSHREE HOOD PHYSICIAN: REFERRING PHYSICIAN: BEHZAD PHILLIPS MD DATE OF SERVICE: 02/12/20 Discharge Plan Patient Name: LIBIA SIERRA [facility] [facility] 1940 Planned Disposition: Anticipated Discharge Date: Discharge Date: Expected LOS: Initial Reviewer: [email or web address] Initial Review Date: 02/12/2020 Generated: 02/12/20 5:07 pm DCPIA - Discharge Planning Initial Assessment Updated by [email or web address]: Hali Barrow on 02/12/20 4:04 pm * How many steps to enter\exit or inside your home? 1 w/rail * PCP Dr. Hudson * Pharmacy [facility] on [address] * Preadmission Environment Home Alone * ADLs Independent * Equipment Elevated [place] Seat Rolling Walker Tub Bench * Other Equipment Rollator, Tub/Shower transfer bench * List name and contact numbers for known caregivers / representatives who currently or will assist patient after discharge: Miranda Carmen, Daughter, * Community resources currently utilized None * Additional services required to return to the preadmission environment? Yes * Can the patient safely return to the preadmission environment? Yes * Has this patient been hospitalized within the prior 30 days at any hospital? No Patient Name: LIBIA SIERRA Page [id number] at 1608 All edits/amendments must be made on the electronic document DICTATION DATE: 02/12/20 160 TEST ANALYST: ERIK 02/12/20 160 RPT#: [id number] DC DATE: STATUS: ADM IN [facility] [address] [place] [address] END OF REPORT
--- NOTE | 2020-02-12 16:15 | MORECARE ---
CASE MANAGEMENT DISCHARGE SUMMARY PATIENT: LIBIA SIERRA UNIT: [id number] ADM DATE: 02/10/20 AGE: 79 : 39 SEX: F ROOM/BED: D.2302 AUTHOR: ERWIN,DOC PHYSICIAN: REFERRING PHYSICIAN: BEHZAD PHILLIPS MD DATE OF SERVICE: 02/12/20 Discharge Plan Patient Name: LIBIA SIERRA Facility: [facility]:[place] : 1940 Planned Disposition: Anticipated Discharge Date: Discharge Date: Expected LOS: Initial Reviewer: [email or web address] Initial Review Date: 02/12/2020 Generated: 02/12/20 5:14 pm Comments DCP- Discharge Planning Updated by [id number]: Hali Barrow on 02/12/20 3:[address] Patient Name: LIBIA SIERRA Admission Status: Elective Accout number: [id number] Admission Date: 02-10-2020 : 1940 Admission Diagnosis: Attending: BEHZAD PHILLIPS Current LOS: 2 Anticipated DC Date: Planned Disposition: Primary Insurance: [employer] CHOICE PPO MCR ADVANT Discharge Planning Comments: CM met w/patient and spoke w/patient's daughter, Miranda Carmen, by phone to discuss discharge planning /needs. Patient's daughter states patient lives at home alone and is independent. States home environment is safe. CM discussed IRF, SNF, and Home Health services. Explained that PT and OT will evaluate patient and make recommendations for discharge disposition. Will wait for those evals to determine discharge plan. Daughter in agreement. CM will continue to follow and assist as needed with discharge planning needs. Concrete Panel Installer: Hali Barrow DCPIA - Discharge Planning Initial Assessment Updated by [email or web address]: Hali Barrow on 02/12/20 4:04 pm * How many steps to enter\exit or inside your home? 1 w/rail * PCP Dr. Hudson * Pharmacy [facility] [address] * Preadmission Environment Home Alone * ADLs Independent * Equipment Elevated [place] Seat Rolling Walker Tub Bench * Other Equipment Rollator, Tub/Shower transfer bench * List name and contact numbers for known caregivers / representatives who currently or will assist patient after discharge: Miranda Carmen, Daughter, * Community resources currently utilized None * Additional services required to return to the preadmission environment? Yes * Can the patient safely return to the preadmission environment? Yes * Has this patient been hospitalized within the prior 30 days at any hospital? No Last DP export: 02/12/20 3:08 p Patient Name: LIBIA SIERRA Page [id number] at 1615 All edits/amendments must be made on the electronic document DICTATION DATE: 02/12/201613 ENGINEERING MECHANIC: ERIK 02/12/20 1614 RPT#: [id number] DC DATE: STATUS: ADM IN [facility] [address] [place] [address] END OF REPORT
--- NOTE | 2020-02-12 19:00 | NUR ---
REPORT REC'D, PT CARE ASSUMED. ASSESSMENT COMPLETED. SEE FLOWSHEETS FOR ALL FINDINGS. PT AROUSES EASILY WITH VOICES, C/O NAUSEA. HOB UP.EMESIS BAG PROVIDED. WET WASH CLOTH APPLIED TO FOREHEAD. ZOFRAN 4MGIVP GIVEN PER ORDER. NO EMESIS NOTED. WILL CONT TO MONITOR.
--- NOTE | 2020-02-12 20:15 | NUR ---
PT'S DAUGHTER CALLED FOR UPDATE. UPDATED AND QUESTIONS ANSWERED.
--- NOTE | 2020-02-12 23:00 | NUR ---
REASSESSMENT COMPLETED. SEE FLOWSHEETS FOR ALL FINDINGS. PT RESTING QUIETLY WITHOUT DISTRESS AT THIS TIME. VSS. HEAD INCISIION DRESSING C,D,I. NO S/S OF DRAINAGE NOTED. DENIES NAUSEA AT THIS TIME. CALL LIGHT IN REACH. CPOC.
[2020-02-13] VITALS (23 sets, daily range): BP systolic 110–168; BP diastolic 49–97
--- NOTE | 2020-02-13 03:00 | NUR ---
REASSESSMENT COMPLETED PER FLOWSHEETS. PT AROUSES EASILY WITH VOICES, DENIES ANY DISCOMFORT AT THIS TIME. NO ACUTE CHANGES NOTED IN PT'S STATUS. VSS. CPOC.
[2020-02-13 06:27] LABS: BASOPHILS 0 % (0-2); EOSINOPHILS 0 % (0-7); HEMATOCRIT 41.4 % (36.0-48.0); HEMOGLOBIN 13.5 g/dL (12-16); IMMATURE GRANULOCYTES 0.2 % (0-5); LYMPHOCYTES 6.1 % (15-50); MCH 33.3 pg (26.0-34.0); MCHC 32.6 g/dL (31.0-37.0); MEAN PLATELET VOLUME 9.7 fL (7.4-10.4); MONOCYTES 11.2 % (2-11); NEUTROPHILS 82.5 % (40-80); PLATELET COUNT 224 10x3/uL (130-400); RBC 4.06 10x6/uL (4.00-5.40)
[2020-02-13 06:29] LABS: ANION GAP 9.6 mmol/L (8-16); BILIRUBIN - TOTAL 0.59 mg/dL (0.2-1.3); CALCIUM 8.2 mg/dL (8.5-10.1); CREATININE - SERUM 1.3 mg/dL (0.6-1.3); POTASSIUM - SERUM 3.6 mmol/L (3.5-5.1); PROTEIN - SERUM 6.5 g/dL (6.4-8.2)
[2020-02-13 06:44] LABS: WBC 11.9 10x3/uL (4.8-10.8)
--- NOTE | 2020-02-13 07:58 | NUR ---
PT AWAKE, CABRERA, VSS. ASSISTED WITH CL TRAY. PT RUDDY WELL.
--- NOTE | 2020-02-13 08:48 | NUR ---
Nutrition follow-up: Pt s/p crainiotomy 02/11 Diet advanced to full liquids with Ensure TID at breakfast today Pt did not talk to me at [facility]. Labs reviewed Wt: 138# RDN will monitor pateints po intake and progress.
--- NOTE | 2020-02-13 14:48 | NUR ---
DR WHITING HERE. PT SAT UP ON SIDE OF BED. VERY UNSTEADY ON SIDE OF BED.
--- NOTE | 2020-02-13 17:45 | NUR ---
ASSISTED PT WITH MEAL TRAY SET UP. PT FED SELF APPROX 30% OF MEAL.
--- NOTE | 2020-02-13 20:00 | NUR ---
AWAKE,ALERT,NO COMPLAINTS VOICED. RESP ULABORED. DRESSING INTACT TO POSTERIOR NECK. BANDAID TO LEFT HEAD INTACT WITHOUT DRAINAGE NOTED. CABRERA. CONTRERAS PATENT AND DRAINING CLEAR YELLOW URINE. CL IN REACH
--- NOTE | 2020-02-13 22:10 | NUR ---
lying queitly. states relief with pain med. no distress noted.cl in reach
[2020-02-14] VITALS (20 sets, daily range): BP systolic 104–159; BP diastolic 68–110
--- NOTE | 2020-02-14 00:30 | NUR ---
LYING QUEITLY WITH NO DISTRESS NOTED. CL IN REACH
--- NOTE | 2020-02-14 02:50 | NUR ---
RESTLESS, CONTINUES TO COMPLAIN OF PAIN TO NECK. MORPHINE 2 MG GIVEN IV FOR PAIN RELIEF.CL IN REACH
[2020-02-14 05:07] LABS: ALBUMIN 2.9 g/dL (3.4-5.0); ANION GAP 8.4 mmol/L (8-16); BILIRUBIN - TOTAL 0.71 mg/dL (0.2-1.3); CALCIUM 8.6 mg/dL (8.5-10.1); CARBON DIOXIDE 34.8 mmol/L (21.0-32.0); CREATININE - SERUM 1.1 mg/dL (0.6-1.3); POTASSIUM - SERUM 3.2 mmol/L (3.5-5.1); PROTEIN - SERUM 6.3 g/dL (6.4-8.2)
[2020-02-14 05:17] LABS: BASOPHILS 0.2 % (0-2); EOSINOPHILS 0.5 % (0-7); HEMATOCRIT 43.7 % (36.0-48.0); HEMOGLOBIN 14.3 g/dL (12-16); IMMATURE GRANULOCYTES 0.3 % (0-5); MCH 33.6 pg (26.0-34.0); MCHC 32.7 g/dL (31.0-37.0); MCV 102.8 fL (80.0-100.0); MONOCYTES 13.2 % (2-11); NEUTROPHILS 66.8 % (40-80); PLATELET COUNT 208 10x3/uL (130-400); RBC 4.25 10x6/uL (4.00-5.40); RDW 12.7 % (11.5-14.5); WBC 10.8 10x3/uL (4.8-10.8)
--- NOTE | 2020-02-14 08:27 | NUR ---
PT STATES THAT SHE IS MISERABLE AND WANTS TO GET UP. SAT ON SIDE OF BED. PT SOME UNSTEADY SITTING. SAT FOR 5 MIN AND TOOK BP. BP WNL. PT WANTING TO LAY BACK DOWN. WILL ATTEMPT TO GET OOB TO CHAIR. NAUSEA SOME BETTER BUT SHE " IS NOT READY TO EAT YET."
--- NOTE | 2020-02-14 10:15 | NUR ---
BATH AND LINENS CHANGED. PT FED SELF BREAKFAST AFTER MEAL TRAY SET UP.
--- NOTE | 2020-02-14 10:57 | NUR ---
DR WHITING HERE. DR PHILLIPS HERE.
--- NOTE | 2020-02-14 16:46 | NUR ---
SAT PT ON SIDE OF BED IN ATTEMPTS TO GET TO CHAIR. PT BECAME NAUSEATED WITH SM AMT CL EMESIS. PT ASSISTED BACK TO BED. WILL ASST WITH MEAL TRAY SET UP AFTER NAUSEA SETTLES.
--- NOTE | 2020-02-14 19:00 | NUR ---
REPORT REC'D. ASSESSMENT COMPLETED. DENIES ANY NEEDS AT THIS TIME. MINIMAL-MODERATE ASSIST WITH REPOSITIONING. CALL LIGHT IN REACH
--- NOTE | 2020-02-14 21:00 | NUR ---
FAMILY CALLED, PASSWORD GIVEN, UPDATE GIVEN
--- NOTE | 2020-02-14 23:00 | NUR ---
RE-ASSESSMENT COMPLETED. NO CHANGES SINCE LAST ASSESSMENT
[2020-02-15] VITALS (18 sets, daily range): BP systolic 123–176; BP diastolic 62–108
--- NOTE | 2020-02-15 01:00 | NUR ---
CALL LIGHT IN REACH. VSS
--- NOTE | 2020-02-15 03:00 | NUR ---
RE-ASSESSMENT COMPLETED. NO CHANGES SINCE LAST ASSESSMENT
--- NOTE | 2020-02-15 05:00 | NUR ---
VSS. CALL LIGHT IN REACH. CONFUSED TO TIME AND SITUATION. REQUESTING TO SEE DAUGHTERELLEN
[2020-02-15 06:08] LABS: BASOPHILS 0.2 % (0-2); EOSINOPHILS 0.7 % (0-7); HEMATOCRIT 42.9 % (36.0-48.0); IMMATURE GRANULOCYTES 0.2 % (0-5); LYMPHOCYTES 17.2 % (15-50); MCH 33.3 pg (26.0-34.0); MCHC 32.6 g/dL (31.0-37.0); MCV 101.9 fL (80.0-100.0); MEAN PLATELET VOLUME 8.9 fL (7.4-10.4); MONOCYTES 13.3 % (2-11); NEUTROPHILS 68.4 % (40-80); PLATELET COUNT 218 10x3/uL (130-400); RBC 4.21 10x6/uL (4.00-5.40); RDW 12.5 % (11.5-14.5); WBC 8.4 10x3/uL (4.8-10.8)
[2020-02-15 06:30] LABS: ALBUMIN 2.8 g/dL (3.4-5.0); ANION GAP 7.7 mmol/L (8-16); BILIRUBIN - TOTAL 0.77 mg/dL (0.2-1.3); CALCIUM 8.6 mg/dL (8.5-10.1); CARBON DIOXIDE 31.2 mmol/L (21.0-32.0); CREATININE - SERUM 0.9 mg/dL (0.6-1.3); POTASSIUM - SERUM 3.9 mmol/L (3.5-5.1)
--- NOTE | 2020-02-15 08:41 | NUR ---
PT FEEDING SELF BREAKFAST AFTER MEAL TRAY SET UP AND POSITIONING.
--- NOTE | 2020-02-15 10:28 | NUR ---
PT STOOD AT BS WITH PT. BECAME UNSTEADY. HR INCREASED TO 140BPM AND BACK TO CAF AT REST.REPORTED TO DR SCHAFER.
[2020-02-15 12:40] LABS: % SATURATION 56 % (15-55); IRON 111 ug/dl (35-150); TOTAL IRON BIND CAPACITY 198 ug/dl (260-445); UNSAT IRON BIND CAPACITY 87 ug/dl (150-375)
--- NOTE | 2020-02-15 19:00 | NUR ---
BEDSIDE REPORT RECEIVED, PT CARE ASSUMED. INTRODUCED SELF AND WROTE NAME ON BOARD. VSS, PT LYING IN BED, AAOX4. DENIES ANY NEEDS AT THIS TIME. BED IN LOWEST POSITION, SR X3, CALL LIGHT WITHIN REACH, BED ALARM ON AND FUNCTIONING. WILL CTM.
--- NOTE | 2020-02-15 23:00 | NUR ---
PT LYING IN BED WITH EYES CLOSED, RR EVEN AND NONLABORED, NO S/S OF DISTRESS, AROUSES EASILY TO VOICE. DENIES NEEDS AT THIS TIME. BED IN LOWEST, SRX3, CALL LIGHT WITHIN REACH, BED ALARM ON AND FUNCTIONING. WILL CTM.
--- NOTE | 2020-02-16 02:45 | NUR ---
PT C/O OF LOWER BACK PAIN OF 5, ON A SCALE OF 0-10. OFFERED PRN PAIN MEDICINE, REFUSED. STAT LOCK REMOVED FROM RT THIGH, NEW STAT LOCK PLACED TO LEFT THIGH. REPOSITIONED FOR COMFORT. DENIES ANY NEEDS AT THIS TIME. BED IN LOWEST, SRX3, CALL LIGHT WITHIN REACH. BED ALARM ON AND FUNCTIONING. WILL CTM.
[2020-02-16 03:00] VITALS: BP 168/102
--- NOTE | 2020-02-16 05:20 | NUR ---
BP 183/114. PRN APRESOLINE ADMINISTERED, PER ORDER. NO NEEDS AT THIS TIME. BED IN LOWEST, SRX3, CALL LIGHT WITHIN REACH, BED ALARM ON AND FUNCTIONING. WILL CTM.
--- NOTE | 2020-02-16 05:50 | NUR ---
BP 128/91. DENIES NEEDS AT THIS TIME. BED IN LOWEST, SRX3, CALL LIGHT WITHIN REACH, BED ALARM ON AND FUNCTIONING. WILL CTM.
[2020-02-16 07:00] VITALS: BP 111/65; BP 118/66
--- NOTE | 2020-02-16 07:00 | NUR ---
REC'D REPORT AND RESUMED, AWAKE AND CONFUSED, MOANING '"I WANT TO GO HOME", FOLLOWS DIRECTION DENIES PAIN AT THIS TIME, O2 VIA 3L HF NC, VSS, ASSESSMENT COMPLETED PER FLOWSHEET, WILL CONTINUE WITH POC
--- NOTE | 2020-02-16 07:55 | NUR ---
CALLED TO ROOM, C/O BRIDGES 05/24 AND NAUSEA, TYLENOL #3 AND ZOFRAN 4MG GIVEN PER PRN [place] ORDER,
--- NOTE | 2020-02-16 09:39 | NUR ---
Nutrition follow-up: s/p carniotomy Diet: Regular PO intake ~50% average at meals Labs reviewed Wt: 138# Last BM charted 02/11 Will continue to provide food choices and honor food preferences. Will offer nutritional supplement RDN following.
--- NOTE | 2020-02-16 10:33 | NUR ---
Rehab Prescreening Consult recieved and the chart has been reviewed. She is a good ARU candidate if she is able to participate in the 3 hrs of therapy that is required. She is also [employer] and will require a preauth. Palma Youngblood RN Clinical Liaison, Rehab
--- NOTE | 2020-02-16 10:54 | EC ---
PATIENT:LIBIA SIERRA DATE OF SERVICE: 02/10/20 SEX: F MEDICAL RECORD: [id number] DATE OF : 38 [facility]ATION[facility] AGE OF PATIENT: 79 ADMISSION DATE: 02/10/20 REFERRING PHYSICIAN: INTERPRETING PHYSICIAN: MICHAEL QUISPE MD ECHOCARDIOGRAM REPORT ECHO CHARGES 4 ECHO COMPLETE Date: 02/11/20 CLINICAL DIAGNOSIS: DYSPNEA ECHOCARDIOGRAPHIC MEASUREMENTS (adult normal given) AC root (d.<3.7cm) 3.2 cm LV Septum d (<1.2 cm> 1.5 cm Valve Excursion 1.8 cm LV Septum (systole) 1.7 cm Left Atria (s.<4.0cm> 4.1 cm LVPW d(<1.2cm) 1.5 cm RV (d.<2.3cm) 3.8 cm LVPW (sytole) 1.8 cm LV diastole(<5.6CM) 3.8 cm MV E-F(>70mm/sec) cm LV systole 2.5 cm LVOT Diameter 1.6 cm MV exc.(>10mm) 2.0 cm Est.ejection fraction (50-75%) % DOPPLER: LVIT cm/sec A 29.0 cm/sec E 107.0 cm/sec LA cm/sec RVSP 36 mmHg LVOT 83 cm/sec AOP1/2T m/s Asc. Ao cm/sec RVOT 58 cm/sec RA cm/sec PA 80 cm/sec AV Gradient Peak 5.23 mmHg AV Mean 2.83 mmHg AV Area 1.4 cm MV Gradient Peak 5.85 mmHg MV Mean 1.96 mmHg MV Area cm COMMENTS: Willower: 2 WENDIE NUNEZ Rn Field: 2 Dr. Haji TAPE# PACS Pericardial Effusion N DATE OF SERVICE: Adequate 2D, color flow imaging, spectral Doppler, and M-Mode Mild LVH. LV internal dimension is normal. Wall motion is normal. EF is greater than or equal to 55%. Aortic valve is tricuspid. No evidence of stenosis. Trace AI by color flow imaging. Left atrium is upper limits of normal, though mildly dilated at 4.0 cm. Mitral valve shows no prolapse. Trace MR. Right-sided chambers are grossly normal. Trace TR. ECHOCARDIOGRAM REPORT [id number] LIBIA SIERRA TRANSINT:[id number] Voice Confirmation ID: [id number] DOCUMENT ID: [id number] MICHAEL QUISPE MD at 1054 CC: [id number] DICTATION DATE: 02/12/20 1352 THERAPEUTIC ASSISTANT: 02/12/20 1655 ADM IN [place] [id number] [place] [address]
[2020-02-16 11:00] VITALS: BP 135/83
--- NOTE | 2020-02-16 11:00 | NUR ---
PT/OT AT BEDSIDE, OOB TO CHAIR WITHOUT DIFFICULTY, TOLERATED WITHOUT DIFFICULTY, NO OTHER ACUTE CHANGE FROM PREVIOUS ASSESSMENT
--- NOTE | 2020-02-16 12:06 | NUR ---
OT NOTE: PT DOING WELL TODAY.. LETHARGIC BUT AGREEABLE TO GET UP AND PARITICIPATE IN THERAPY; MIN ASSIST FOR SUPINE TO SIT; SITTING BALANCE UNSUPPORTED IS GOOD.. PT VERY WEAK. TOLERATED EOB SITTING X APPROX 5 MIN THEN PT ATTEMPTING TO LIE BACK DOWN. SHE WAS AGREEABLE TO SIT UP IN CHAIR; TRANSFER WITH MIN ASSIST FROM BED TO CHAIR; PERFORMED SEVERAL SIT TO STANDS TO IMPROVE STRENGTH ( PT REQUIRED MOD ASSIST WITH THESE DUE TO CHAIR BEING LOW TO GROUND)..PT ABLE TO WASH FACE AND HANDS WITH WASH CLOTH AND SET UP; MOD ASSIST WITH UE AND LE BATHING; MAX ASSIST TO MILAD SOCKS. BP CHECKED WHILE PT UP ON EOB..121/74...PT UP IN CHAIR WITH FEET ELEVATED . PROVIDED WARM BLANKET AND PT ALMOST ASLEEP. SHAHEEN ENCISO, OTR/L [id number]
--- NOTE | 2020-02-16 14:55 | MORECARE ---
CASE MANAGEMENT DISCHARGE SUMMARY PATIENT: LIBIA SIERRA UNIT: [id number] ADM DATE: 02/10/20 AGE: 79 : 39 SEX: F ROOM/BED: D.2302 AUTHOR: ERWIN,DOC PHYSICIAN: REFERRING PHYSICIAN: BEHZAD PHILLIPS MD DATE OF SERVICE: 02/16/20 Discharge Plan Patient Name: LIBIA SIERRA Facility: [facility]:[place] : 1940 Planned Disposition: Anticipated Discharge Date: Discharge Date: Expected LOS: Initial Reviewer: [email or web address] Initial Review Date: 02/12/2020 Generated: 02/16/20 3:54 pm DCP- Discharge Planning Updated by [email or web address]: Hali Barrow on 02/12/20 3:[address] Patient Name: LIBIA SIERRA Admission Status: Elective Accout number: [id number] Admission Date: 02-10-2020 : 1940 Admission Diagnosis: Attending: BEHZAD PHILLIPS Current LOS: 2 Anticipated DC Date: Planned Disposition: Primary Insurance: HU[employer]NA CHOICE PPO MCR ADVANT Discharge Planning Comments: CM met w/patient and spoke w/patient's daughter, Miranda Carmen, by phone to discuss discharge planning /needs. Patient's daughter states patient lives at home alone and is independent. States home environment is safe. CM discussed IRF, SNF, and Home Health services. Explained that PT and OT will evaluate patient and make recommendations for discharge disposition. Will wait for those evals to determine discharge plan. Daughter in agreement. CM will continue to follow and assist as needed with discharge planning needs. Dialysis Tech: Hali Barrow DCPIA - Discharge Planning Initial Assessment Updated by [email or web address]: Hali Barrow on 02/12/20 4:04 pm * How many steps to enter\exit or inside your home? 1 w/rail * PCP Dr. Hudson * Pharmacy [facility] on [address] * Preadmission Environment Home Alone * ADLs Independent * Equipment Elevated Tol[place] Seat Rolling Walker Tub Bench * Other Equipment Rollator, Tub/Shower transfer bench * List name and contact numbers for known caregivers / representatives who currently or will assist patient after discharge: Miranda Carmen, Daughter, * Community resources currently utilized None * Additional services required to return to the preadmission environment? Yes * Can the patient safely return to the preadmission environment? Yes * Has this patient been hospitalized within the prior 30 days at any hospital? No External Providers External Provider: [facility] Next Contact Date: Service Request Date: Service Type: Resolution: Reviewer: Comments: Last DP export: 02/12/20 3:15 p Patient Name: LIBIA SIERRA Page [phone] at 1455 All edits/amendments must be made on the electronic document DICTATION DATE: 02/16/201453 ROLLER COASTER ENGINEER: ERIK 02/16/201453 RPT#: [id number] DC DATE: STATUS: ADM IN [facility] [address] [place] [address] END OF REPORT
[2020-02-16 15:00] VITALS: BP 142/86
--- NOTE | 2020-02-16 15:00 | NUR ---
SLEEPING WITH NO SIGN OF DISTRESS, VSS, AROUSABLE TO VERBAL STIMULI, CALL LIGHT IN REACH, NO NEEDS AT THIS TIME
--- NOTE | 2020-02-16 15:50 | NUR ---
OT NOTE: PT REQUIRED MOD A WITH CHAIR TO BED TSF. PT REQUIRE MOD A WITH SIT TO SUPINE. PT COMPLETED FACE HYGIENE WITH MIN A. [phone] THANK YOU,AMBROSIO WEST
--- NOTE | 2020-02-16 16:00 | NUR ---
I AND O'S COMPLETED, REPOSITIONED UP AND TO LEFT SIDE WITH PILLOW TO BACK
[2020-02-16 19:00] VITALS: BP 171/73
--- NOTE | 2020-02-16 21:25 | NUR ---
PATIENT IS AWAKE REQUESTING JELLO. MEDS GIVEN. PATIENT DENIES ANY NEEDS AT THIS TIME. CALL LIGHT WITHIN REACH, BED IN LOW POSITION.
--- NOTE | 2020-02-16 22:10 | MORECARE ---
CASE MANAGEMENT DISCHARGE SUMMARY PATIENT: LIBIA SIERRA UNIT: [id number] ADM DATE: 02/10/20 AGE: 79 : 39 SEX: F ROOM/BED: D.2302 AUTHOR: ERWIN,DOC PHYSICIAN: REFERRING PHYSICIAN: BEHZAD PHILLIPS MD DATE OF SERVICE: 02/16/20 Discharge Plan Patient Name: LIBIA SIERRA Facility: [facility]:[place] : 1940 Planned Disposition: Snf Facility Anticipated Discharge Date: Discharge Date: Expected LOS: Initial Reviewer: [email or web address] Initial Review Date: 02/12/2020 Generated: 02/16/20 11:10 pm DCP- Discharge Planning Updated by [email or web address]: Hali Barrow on 02/12/20 3:[address] Patient Name: LIBIA SIERRA Admission Status: Elective Accout number: [id number] Admission Date: 02-10-2020 : 1940 Admission Diagnosis: Attending: BEHZAD PHILLIPS Current LOS: 2 Anticipated DC Date: Planned Disposition: Primary Insurance: HU[employer]NA CHOICE PPO MCR ADVANT Discharge Planning Comments: CM met w/patient and spoke w/patient's daughter, Miranda Carmen, by phone to discuss discharge planning /needs. Patient's daughter states patient lives at home alone and is independent. States home environment is safe. CM discussed IRF, SNF, and Home Health services. Explained that PT and OT will evaluate patient and make recommendations for discharge disposition. Will wait for those evals to determine discharge plan. Daughter in agreement. CM will continue to follow and assist as needed with discharge planning needs. Parts Salesperson: Hali Barrow DCPIA - Discharge Planning Initial Assessment Updated by [email or web address]: Hali Barrow on 02/12/20 4:04 pm * How many steps to enter\exit or inside your home? 1 w/rail * PCP Dr. Hudson * Pharmacy [facility] on [address] * Preadmission Environment Home Alone * ADLs Independent * Equipment Elevated [place] Seat Rolling Walker Tub Bench * Other Equipment Rollator, Tub/Shower transfer bench * List name and contact numbers for known caregivers / representatives who currently or will assist patient after discharge: Miranda Carmen, Daughter, * Community resources currently utilized None * Additional services required to return to the preadmission environment? Yes * Can the patient safely return to the preadmission environment? Yes * Has this patient been hospitalized within the prior 30 days at any hospital? No Last DP export: 02/16/20 1:55 pm Patient Name: LIBIA SIERRA Page [phone] at 2210 All edits/amendments must be made on the electronic document DICTATION DATE: 02/16/202209 ASPHALT ROLLER PERSON: ERIK 02/16/202209 RPT#: [id number] DC DATE: STATUS: ADM IN [facility] [address] [place] [address] END OF REPORT
--- NOTE | 2020-02-16 22:18 | MORECARE ---
CASE MANAGEMENT DISCHARGE SUMMARY PATIENT: LIBIA SIERRA UNIT: [id number] ADM DATE: 02/10/20 AGE: 79 : 39 SEX: F ROOM/BED: D.2302 AUTHOR: ERWIN,DOC PHYSICIAN: REFERRING PHYSICIAN: BEHZAD PHILLIPS MD DATE OF SERVICE: 02/16/20 Discharge Plan Patient Name: LIBIA SIERRA Facility: [facility]:[place] : 1940 Planned Disposition: Chcf Facility Anticipated Discharge Date: Discharge Date: Expected LOS: Initial Reviewer: [email or web address] Initial Review Date: 02/12/2020 Generated: 02/16/20 11:17 pm Comments DCP- Discharge Planning Updated by [email or web address]: Maggie Conde on 02/16/20 9:[address] CM spoke with patient's daughter Miranda Carmen [phone] and she requested that patient to go to [facility]. CM called facility and spoke with Odalys and they would be awaiting referral. CM faxed clinicals [phone]. CM awaiting determination of acceptance.CM will continue to follow and assist as needed with discharge planning / needs. DCP- Discharge Planning Updated by [email or web address]: Hali Barrow on 02/12/20 3:[address] Patient Name: LIBIA SIERRA Admission Status: Elective Accout number: [id number] Admission Date: 02-10-2020 : 1940 Admission Diagnosis: Attending: BEHZAD PHILLIPS Current LOS: 2 Anticipated DC Date: Planned Disposition: Primary Insurance: HU[employer]NA CHOICE PPO MCR ADVANT Discharge Planning Comments: CM met w/patient and spoke w/patient's daughter, Miranda Carmen, by phone to discuss discharge planning /needs. Patient's daughter states patient lives at home alone and is independent. States home environment is safe. CM discussed IRF, SNF, and Home Health services. Explained that PT and OT will evaluate patient and make recommendations for discharge disposition. Will wait for those evals to determine discharge plan. Daughter in agreement. CM will continue to follow and assist as needed with discharge planning needs. Automatic Tire Tester: Hali Barrow DCPIA - Discharge Planning Initial Assessment Updated by [email or web address]: Hali Barrow on 02/12/20 4:04 pm * How many steps to enter\exit or inside your home? 1 w/rail * PCP Dr. Hudson * Pharmacy [facility] on [address] * Preadmission Environment Home Alone * ADLs Independent * Equipment Elevated [place] Seat Rolling Walker Tub Bench * Other Equipment Rollator, Tub/Shower transfer bench * List name and contact numbers for known caregivers / representatives who currently or will assist patient after discharge: Miranda Carmen, Daughter, * Community resources currently utilized None * Additional services required to return to the preadmission environment? Yes * Can the patient safely return to the preadmission environment? Yes * Has this patient been hospitalized within the prior 30 days at any hospital? No Coverage Notice Reviewer: [id number] Elzbieta Conde Notice Issued Date-Time: 02/16/2020 14:00 Notice Type: Patient Choice Letter Notice Delivered To: Family Member Relationship to Patient: Daughter Digital Marketer Name: Miranda Carmen Delivery Method: PHONE - Phone Beti Days: Prior Verbal Notification: Yes Recipient Understood Notice: Yes Recipient Signature: Med Rec Note Co-signed by Attending: Coverage Notice Comment: [facility] Last DP export: 02/16/20 9:10 pm Patient Name: LIBIA SIERRA Page [phone] at 2218 All edits/amendments must be made on the electronic document DICTATION DATE: 02/16/202216 MANAGER FORENSIC: ERIK 02/16/202216 RPT#: [id number] DC DATE: STATUS: ADM IN [facility] [address] [place] [address] END OF REPORT
[2020-02-16 23:00] VITALS: BP 132/95
--- NOTE | 2020-02-16 23:00 | NUR ---
NO CHANGES IN PATIENT CONDITION. PATIENT REQUESTING ICE WATER. DENIES ANY OTHER NEEDS OR PAIN. CALL LIGHT WITHIN REACH, BED IN LOW POSITION.
--- NOTE | 2020-02-17 01:50 | NUR ---
PATIENT IS CONFUSED AT TIMES. DENIES ANY NEEDS AT THIS TIME. CALL LIGHT WITHIN REACH, BED IN LOW POSITION.
[2020-02-17 03:00] VITALS: BP 129/75
--- NOTE | 2020-02-17 03:00 | NUR ---
NO CHANGES FROM SHIFT ASSESSMENT. CALL LIGHT WITHIN REACH, BED IN LOW POSITION.
[2020-02-17 07:00] VITALS: BP 121/70
--- NOTE | 2020-02-17 07:00 | NUR ---
REC'D REPORT AND RESUMED CARE, SLEEPING AROUSABLE TO VERBAL STIMULI, VSS, DENIES PAIN, STATES VERY HUNGRY, CALL LIGHT IN REACH, ASSESSMENT COMPLETED PER FLOWSHEET,
--- NOTE | 2020-02-17 09:00 | NUR ---
MORNING MEDS GIVEN PER MAR FLOWSHEET, TOLERATED WITHOUT DIFFICULTY
--- NOTE | 2020-02-17 09:25 | NUR ---
OOB TO CHAIR WITH MODERATE ASSIST, TOLERATED WITHOUT DIFFICULTY
--- NOTE | 2020-02-17 10:26 | MORECARE ---
CASE MANAGEMENT DISCHARGE SUMMARY PATIENT: LIBIA SIERRA UNIT: [id number] ADM DATE: 02/10/20 AGE: 79 : 39 SEX: F ROOM/BED: D.2302 AUTHOR: ERWIN,DOC PHYSICIAN: REFERRING PHYSICIAN: BEHZAD PHILLIPS MD DATE OF SERVICE: 02/17/20 Discharge Plan Patient Name: LIBIA SIERRA Facility: [facility]:[place] : 1940 Planned Disposition: Longterm Facility Anticipated Discharge Date: Discharge Date: Expected LOS: Initial Reviewer: [email or web address] Initial Review Date: 02/12/2020 Generated: 02/17/20 11:25 am Comments DCP- Discharge Planning Updated by [email or web address]: Jalyn Boles on 02/17/20 9:[address] Maxine, with [facility] called to verify plan and notified of no imminent DC order. Provided CM contact number for further needed information. DCP- Discharge Planning Updated by [id number]: Maggie Conde on 02/16/20 9:[address] CM spoke with patient's daughter Miranda Carmen [phone] and she requested that patient to go to [facility]. CM called facility and spoke with Odalys and they would be awaiting referral. CM faxed clinicals . CM awaiting determination of acceptance.CM will continue to follow and assist as needed with discharge planning / needs. DCP- Discharge Planning Updated by [id number]: Hali Barrow on 02/12/20 3:[address] Patient Name: LIBIA SIERRA Admission Status: Elective Accout number: [id number] Admission Date: 02-10-2020 : 1940 Admission Diagnosis: Attending: BEHZAD PHILLIPS Current LOS: 2 Anticipated DC Date: Planned Disposition: Primary Insurance: HUMANA CHOICE PPO MCR ADVANT Discharge Planning Comments: CM met w/patient and spoke w/patient's daughter, Miranda Carmen, by phone to discuss discharge planning /needs. Patient's daughter states patient lives at home alone and is independent. States home environment is safe. CM discussed IRF, SNF, and Home Health services. Explained that PT and OT will evaluate patient and make recommendations for discharge disposition. Will wait for those evals to determine discharge plan. Daughter in agreement. CM will continue to follow and assist as needed with discharge planning needs. Fuse Assembler: Hali Danial DCPIA - Discharge Planning Initial Assessment Updated by [id number]: Hali Barrow on 02/12/20 4:04 pm * How many steps to enter\exit or inside your home? 1 w/rail * PCP Dr. Hudson * Pharmacy [facility] on [address] * Preadmission Environment Home Alone * ADLs Independent * Equipment Elevated Tol[place] Seat Rolling Walker Tub Bench * Other Equipment Rollator, Tub/Shower transfer bench * List name and contact numbers for known caregivers / representatives who currently or will assist patient after discharge: Miranda Carmen, Daughter, * Community resources currently utilized None * Additional services required to return to the preadmission environment? Yes * Can the patient safely return to the preadmission environment? Yes * Has this patient been hospitalized within the prior 30 days at any hospital? No Coverage Notice Reviewer: [id number] Elzbieta Conde Notice Issued Date-Time: 02/16/2020 14:00 Notice Type: Patient Choice Letter Notice Delivered To: Family Member Relationship to Patient: Daughter Radiographer Mammographer Name: Miranda Carmen Delivery Method: PHONE - Phone Beti Days: Prior Verbal Notification: Yes Recipient Understood Notice: Yes Recipient Signature: Med Rec Note Co-signed by Attending: Coverage Notice Comment: [facility] Last DP export: 02/16/20 9:18 pm Patient Name: LIBIA SIERRA Page [phone] at 1026 All edits/amendments must be made on the electronic document DICTATION DATE: 02/17/20 1025 NATIONAL SALES MANAGER: ERIK 02/17/20 1025 RPT#: [id number] DC DATE: STATUS: ADM IN [facility] [address] [place] [address] END OF REPORT
[2020-02-17 11:00] VITALS: BP 114/75
--- NOTE | 2020-02-17 11:18 | NUR ---
AMULATED WITH PHYSICAL THERAPY, 100FT, TOLERATED WITHOUT DIFFICULTY
[2020-02-17 15:00] VITALS: BP 113/74
--- NOTE | 2020-02-17 15:20 | NUR ---
OT NOTE: PT REQUIRED MIN A WITH SIT TO STAND. PT COMPLETED CHAIR TO BED TSF WITH CGA/MIN A. PT COMPLETED SIT TO SUPINE WITH MOD A FOR LE MANAGEMENT. PT COMPLETED FACE HYGIENE WITH MIN A. PT IS MORE ALERT TODAY. [id number] THANK YOU,AMBROSIO WEST
--- NOTE | 2020-02-17 16:09 | NUR ---
OT NOTE: PT PERFORMED WELL TODAY. SHE WAS ALREADY UP IN CHAIR. REPORTED FEELING BETTER, HOWEVER, STILL SLIGHTLY CONFUSED AND DISORIENTED. SIT TO STAND WITH MIN ASSIST; ABLE TO AMB APPROX 100 FT WITH OT AND PT ASSIST, GAIT BELT, USE OF WALKER, AND ASSIST FOR EQUIP. TRANSFERRED BACK TO CHAIR WITH MIN ASSIST; ABLE TO PERFORM SIMPLE GROOMING WITH MIN ASSIST; MOD ASSIST FOR DONNING SOCKS AND GOWN. POSITIONED IN CHAIR WITH ALARM AND CALL LIGHT IN PLACE. PHYSICALLY MUCH BETTER TODAY THAN PREVIOUS DAYS. SHAHEEN ENCISO, OTR/L [phone]
[2020-02-17 21:42] VITALS: BP 172/92
[2020-02-18 00:23] VITALS: BP 152/88
--- NOTE | 2020-02-18 03:14 | NUR ---
I have reviewed this patient and I concur with the Shift Assessment completed by the Licensed Practical Nurse today this shift.
--- NOTE | 2020-02-18 03:29 | NUR ---
PT RESTING IN BED. EYES CLOSED. NO SIGNS OF DISTRESS. BREATHING EVEN AND UNLABORED. IV SITE RT IJ DRESSING CLEAN DRY AND INTACT. NO SIGNS OF INFECTION. RT EYE BRUISE. BACK OF HEAD STABLES CLEAN DRY AND INTACT. OPEN TO AIR. LUNG SOUNDS CLEAR. BOWEL SOUNDS ACTIVE. CONTRERAS IN PLACE. WILL CONTINUE PLAN OF CARE. CALL LIGHT IN REACH. BED LOWERED AND LOCKED. BED RAILS UPX2. BED ALARM ON.
[2020-02-18 06:04] VITALS: BP 148/88
--- NOTE | 2020-02-18 07:20 | NUR ---
REC'D IN BED AWAKE AND ORIENTED TO SELF ONLY. RESP EVEN AND UNLABORED WITH NO DISTRESS NOTED. CAN EXPRESS NEEDS AND WANTS. NO C/O NOTED OR VOICED. BRUISING NOTED TO RIGHT EYE. INCISION NOTED TO BACK OF HEAD WITH NOREEN INTACT. WILL CONTINUE TO OBSERVE FOR NEEDS. C/L IN REACH AT BEDSIDE.
[2020-02-18 09:47] VITALS: BP 182/102
[2020-02-18 11:44] LABS: ANION GAP 8.5 mmol/L (8-16); CALCIUM 8.6 mg/dL (8.5-10.1); CREATININE - SERUM 0.9 mg/dL (0.6-1.3); POTASSIUM - SERUM 3.5 mmol/L (3.5-5.1)
[2020-02-18 13:15] LABS: BASOPHILS 0.3 % (0-2); EOSINOPHILS 1.7 % (0-7); HEMATOCRIT 44.2 % (36.0-48.0); HEMOGLOBIN 14.8 g/dL (12-16); IMMATURE GRANULOCYTES 1.1 % (0-5); LYMPHOCYTES 15.9 % (15-50); MCH 34.1 pg (26.0-34.0); MCHC 33.5 g/dL (31.0-37.0); MCV 101.8 fL (80.0-100.0); MEAN PLATELET VOLUME 9.2 fL (7.4-10.4); MONOCYTES 9.8 % (2-11); NEUTROPHILS 71.2 % (40-80); PLATELET COUNT 246 10x3/uL (130-400); RBC 4.34 10x6/uL (4.00-5.40); RDW 12.1 % (11.5-14.5); WBC 7.2 10x3/uL (4.8-10.8)
[2020-02-18 13:17] VITALS: BP 151/77
--- NOTE | 2020-02-18 14:36 | NUR ---
OT NOTE: PT REMAINS SLIGHTLY CONFUSED AND DISORIENTED. MIN ASSIST FOR BED MOB AND EOB SITTING; SIT TO STAND WITH MIN ASSIST; AMB IN ROOM WITH WALKER AND MIN ASSIST.. FREQUENT CUES TO KEEP EYES OPEN..REPORTED SOME MILD DIZZINESS. SLLIGHTLY SLOW TO RESPOND DURING AMBULATION SO ASSISTED PT BACK TO BED. 02 SATS CHECKED AT 97%..PT WAS JUST NOT DOING WELL YESTERDAY. SHAHEEN ENCISO, OTR/L [phone]
--- NOTE | 2020-02-18 14:41 | NUR ---
OT NOTE: PT COMPLETED SUPINE TO SIT WITH MIN A. PT COMPLETED SIT TO STAND WITH MIN A. PT COMPLETED ADL MOB WITH RW REQUIRED CGA. PT COMPLETED FACE HYGIENE WITH SET UP. PT EXHIBITED DECREASED AX TOLERANCE TODAY. VALENTE NOTIFIED NURSING. NURSING NOTED VITALS WERE GOOD. [phone] THANK YOU,AMBROSIO WEST
--- NOTE | 2020-02-18 15:07 | NUR ---
BRUISED RIGHT EYE AND INCISION ON BACK OF PTS HEAD. WOUND CLEAN AND DRY. WOUND CARE WILL MONITOR.
[2020-02-18 17:29] VITALS: BP 171/72
[2020-02-18 20:00] VITALS: BP 182/99
[2020-02-19] VITALS: BP 154/79
--- NOTE | 2020-02-19 01:45 | NUR ---
PT PICKING AT HER NECK, PICC DRESSING ON FLOOR. PT REMINDED OF NEED FOR PICC AND FOR DRESSING TO REMAIN ON. PT STATED SHE FORGOT SHE HAD IT. DRESSING CHANGE PERFORMED. CTM.
--- NOTE | 2020-02-19 02:55 | NUR ---
I have reviewed this patient and I concur with the Shift Assessment completed by the Licensed Practical Nurse today this shift.
[2020-02-19 04:00] VITALS: BP 133/79
[2020-02-19 06:52] LABS: BASOPHILS 0.1 % (0-2); EOSINOPHILS 1.6 % (0-7); HEMATOCRIT 39.9 % (36.0-48.0); HEMOGLOBIN 13.5 g/dL (12-16); IMMATURE GRANULOCYTES 0.4 % (0-5); LYMPHOCYTES 20.2 % (15-50); MCH 33.5 pg (26.0-34.0); MCHC 33.8 g/dL (31.0-37.0); MEAN PLATELET VOLUME 9.3 fL (7.4-10.4); MONOCYTES 11.5 % (2-11); NEUTROPHILS 66.2 % (40-80); PLATELET COUNT 233 10x3/uL (130-400); RBC 4.03 10x6/uL (4.00-5.40); RDW 11.9 % (11.5-14.5)
[2020-02-19 07:19] LABS: ANION GAP 10.2 mmol/L (8-16); CALCIUM 8.7 mg/dL (8.5-10.1); CARBON DIOXIDE 30.2 mmol/L (21.0-32.0); CREATININE - SERUM 0.9 mg/dL (0.6-1.3); POTASSIUM - SERUM 3.4 mmol/L (3.5-5.1)
--- NOTE | 2020-02-19 07:29 | NUR ---
ALERT AND ORIENTED. LUNGS CLEAR BILATERALLY. HEART SOUNDS S1 AND S2 HEARD IN ALL DUMONT. BOWEL SOUNDS ACTIVE X4. BRUSING TO RIGHT EYE. NOREEN X 15 TO BACK OF HEAD. RIGHT IJ PATENT WITHOUT REDNESS. CONTRERAS PATENT DRAINING CLEAR YELLOW URINE. DENIES NEEDS. BED LOW. FALL PRECAUTIONS IN PLACE. CALL SANTAMARIA AND PERSONAL ITEMS IN REACH. WILL CONTINUE TO MONITOR.
--- NOTE | 2020-02-19 08:41 | NUR ---
PATIENT NAUSEATED AND VOMITTED SMALL AMOUNT OF YELLOW LIQUID. PRN ZOFRAN GIVEN. WILL CONTINUE TO MONITOR.
--- NOTE | 2020-02-19 09:14 | NUR ---
SPOKE WITH DR SCHAFER ABOUT STARTING PATIENT'S COUMADIN. STATES OK PER HIM TO START COUMADIN BUT TO DOUBLE CHECK WITH DR WHITING.
--- NOTE | 2020-02-19 09:16 | NUR ---
CALLED DR WHITING. NO ANSWER. LEFT VOICEMAIL TO CALL BACK.
[2020-02-19 09:28] VITALS: BP 171/85
--- NOTE | 2020-02-19 11:37 | OP ---
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 PROCEDURE: Suboccipital craniotomy for resection of necrotic cerebellar hemorrhage and decompression of cerebral aqueduct with decompression of hydrocephalus. SURGEON: Cindy Whiting MD DESCRIPTION AND TECHNIQUE: After induction of general endotracheal anesthesia, the patient was placed in Loera head pins, rolled in a prone position on chest and hip rolls with head of bed up at approximately 30 degrees. The posterior scalp and neck were prepped and draped in the usual sterile fashion. A midline scalp incision was carried out from 2 cm above the inion to the spinous process of C2. Ligamentum nuchae was divided with the Bovie cautery. The left cerebellar convexity was exposed in a subperiosteal manner. Two vince holes were created along the midline just above the inion and 3 cm below that. These were connected with a Midas-Justyn drill using a foot plate attachment. The dura was quite tense after elevation of the flap. The dura was opened in a cruciate manner. There was cerebellar tissue protruding from the cranial wound under pressure. This was evacuated with gentle suction. There was no bleeding due to the fact it was a necrotic avascular tissue. Following evacuation of this portion of the cerebellum on the left hemisphere, the posterior fossa became pulsatile and fluctuated with respirations. CSF was removed from the arachnoid space without difficulty. This appeared to improve the pulsatility further. Next, the dura was reapproximated with 4-0 Nurolon suture. The skull flap was replaced with titanium plates and screws. The ligamentum nuchae and galea were reapproximated with interrupted 2-0 Vicryl suture, the subdermal layer was closed with 3-0 Vicryl suture. The skin was closed with cherry. A sterile dressing was applied to the wound. The patient was awakened in good condition and taken to recovery. All counts were reported as correct. Estimated blood loss was minimal. TRANSINT:[id number] Voice Confirmation ID: [id number] DOCUMENT ID: [id number] OPERATIVE REPORT [id number] LIBIA SIERRA JOHN MD at 1137 CC: [id number] DICTATION DATE: 02/12/20 1050 SHIPPING ORDER CLERK: 02/12/20 1346 ADM IN [facility] [id number] [place] [address]
--- NOTE | 2020-02-19 13:07 | NUR ---
PATIENT REFUSED SECOND DOSE POTASSIUM PER ELECTROLYTE PROTOCOL.
[2020-02-19 13:20] VITALS: BP 156/97
[2020-02-19 15:33] LABS: INR 1.1 (0.85-1.17); PROTIME 14.2 SECONDS (11.6-15.0)
[2020-02-19 16:45] VITALS: BP 169/95
--- NOTE | 2020-02-19 16:51 | NUR ---
OT NOTE: PT REQUIRED CGA FOR SUPINE TO SIT. PT COMPLETED BED TO CHAIR TSF WITH CGA. PT COMPLETED MILAD SOCKS WITH SBA. PT COMPLETED SELF FEEDING TASK WITH SETUP. NOTIFIED HVAC SALES REPRESENTATIVE THAT ALARM SWITCH COULD NOT BE ACCESSED. HVAC SALES REPRESENTATIVE STATED SHE WOULD NOTIFY NURSING. [phone] THANK YOU,AMBROSIO WEST
--- NOTE | 2020-02-19 17:05 | MORECARE ---
CASE MANAGEMENT DISCHARGE SUMMARY PATIENT: LIBIA SIERRA UNIT: [id number] ADM DATE: 02/10/20 AGE: 79 : 39 SEX: F ROOM/BED: D.2219 AUTHOR: JAYSHREE HOOD PHYSICIAN: REFERRING PHYSICIAN: BEHZAD PHILLIPS MD DATE OF SERVICE: 02/19/20 Discharge Plan Patient Name: LIBIA SIERRA Facility: [facility]:[place] : 1940 Planned Disposition: Residential Facility Anticipated Discharge Date: Discharge Date: Expected LOS: Initial Reviewer: [id number] Initial Review Date: 02/12/2020 Generated: 02/19/20 6:05 pm Comments DCP- Discharge Planning Updated by [id number]: Shawnee Regalado on 02/19/20 4:[address] Patient Name: LIBIA SIERRA Admission Status: Elective Accout number: [id number] Admission Date: 02-10-2020 : 1940 Admission Diagnosis:CEREBRAL INFARCTION, UNSPECIFIED Attending: BEHZAD PHILLIPS Current LOS: 9 Anticipated DC Date: Planned Disposition: Residential Facility Primary Insurance: [employer] CHOICE PPO MCR ADVANT Discharge Planning Comments: SPOKE WITH DAUGHTER MIRANDA AND GAVE HER UPDATE. I ALSO SPOKE TO SURENDRA WITH [facility] AND SHOULD HAVE AUTH IN THE MORNING. CM TO FOLLOW AND ASSIST NEEDED. Household Appliance Repairer: Shawnee Regalado DCP- Discharge Planning Updated by [id number]: Jalyn Boles on 02/17/20 9:[address] Maxine, with [facility] called to verify plan and notified of no imminent DC order. Provided CM contact number for further needed information. DCP- Discharge Planning Updated by [email or web address]: Maggie Conde on 02/16/20 9:[address] CM spoke with patient's daughter Miranda Carmen [phone] and she requested that patient to go to [facility]. CM called facility and spoke with Odalys and they would be awaiting referral. CM faxed clinicals . CM awaiting determination of acceptance.CM will continue to follow and assist as needed with discharge planning / needs. DCP- Discharge Planning Updated by [id number]: Hali Barrow on 02/12/20 3:[address] Patient Name: LIBIA SIERRA Admission Status: Elective Accout number: [id number] Admission Date: 02-10-2020 : 1940 Admission Diagnosis: Attending: BEHZAD PHILLIPS Current LOS: 2 Anticipated DC Date: Planned Disposition: Primary Insurance: [employer] CHOICE PPO MCR ADVANT Discharge Planning Comments: CM met w/patient and spoke w/patient's daughter, Miranda Carmen, by phone to discuss discharge planning /needs. Patient's daughter states patient lives at home alone and is independent. States home environment is safe. CM discussed IRF, SNF, and Home Health services. Explained that PT and OT will evaluate patient and make recommendations for discharge disposition. Will wait for those evals to determine discharge plan. Daughter in agreement. CM will continue to follow and assist as needed with discharge planning needs. Household Appliance Repairer: Hali Danial DCPIA - Discharge Planning Initial Assessment Updated by [email or web address]: Hali Barrow on 02/12/20 4:04 pm * How many steps to enter\exit or inside your home? 1 w/rail * PCP Dr. Hudson * Pharmacy [facility] [address] * Preadmission Environment Home Alone * ADLs Independent * Equipment Elevated [place] Seat Rolling Walker Tub Bench * Other Equipment Rollator, Tub/Shower transfer bench * List name and contact numbers for known caregivers / representatives who currently or will assist patient after discharge: Miranda Carmen, Daughter, * Community resources currently utilized None * Additional services required to return to the preadmission environment? Yes * Can the patient safely return to the preadmission environment? Yes * Has this patient been hospitalized within the prior 30 days at any hospital? No Coverage Notice Reviewer: [id number] Elzbieta Conde Notice Issued Date-Time: 02/16/2020 14:00 Notice Type: Patient Choice Letter Notice Delivered To: Family Member Relationship to Patient: Daughter Switch Tender Name: Miranda Carmen Delivery Method: PHONE - Phone Beti Days: Prior Verbal Notification: Yes Recipient Understood Notice: Yes Recipient Signature: Med Rec Note Co-signed by Attending: Coverage Notice Comment: [facility] Last DP export: 02/17/20 9:26 am Patient Name: LIBIA SIERRA Page [phone] at 1705 All edits/amendments must be made on the electronic document DICTATION DATE: 02/19/201704 DATA CAPTURE SPECIALIST: ERIK 02/19/201704 RPT#: [id number] DC DATE: STATUS: ADM IN [facility] [address] [place] [address] END OF REPORT
--- NOTE | 2020-02-19 17:21 | MORECARE ---
CASE MANAGEMENT DISCHARGE SUMMARY PATIENT: LIBIA SIERRA UNIT: [id number] ADM DATE: 02/10/20 AGE: 79 : 39 SEX: F ROOM/BED: D.2219 AUTHOR: ERWIN,DOC PHYSICIAN: REFERRING PHYSICIAN: BEHZAD PHILLIPS MD DATE OF SERVICE: 02/19/20 Discharge Plan Patient Name: LIBIA SIERRA Facility: [facility]:[place] : 1940 Planned Disposition: Mcfp Facility Anticipated Discharge Date: Discharge Date: Expected LOS: Initial Reviewer: [id number] Initial Review Date: 02/12/2020 Generated: 02/19/20 6:20 pm Comments DCP- Discharge Planning Updated by [id number]: Shawnee Regalado on 02/19/20 4:[address] Patient Name: LIBIA SIERRA Admission Status: Elective Accout number: [id number] Admission Date: 02-10-2020 : 1940 Admission Diagnosis:CEREBRAL INFARCTION, UNSPECIFIED Attending: BEHZAD PHILLIPS Current LOS: 9 Anticipated DC Date: Planned Disposition: Mcfp Facility Primary Insurance: [employer] CHOICE PPO MCR ADVANT Discharge Planning Comments: SPOKE WITH DAUGHTER MIRANDA AND GAVE HER UPDATE. I ALSO SPOKE TO SURENDRA WITH [facility] AND SHOULD HAVE AUTH IN THE MORNING. CM TO FOLLOW AND ASSIST NEEDED. Supply Analyst: Shawnee Regalado Appended by Shawnee Regalado on 02/19/2020 17:14 CDT: REFERRAL FAXED TO SURENDRA AT [phone]. DCP- Discharge Planning Updated by [email or web address]: Jalyn Boles on 02/17/20 9:[address] Maxine, with [facility] called to verify plan and notified of no imminent DC order. Provided CM contact number for further needed information. DCP- Discharge Planning Updated by [email or web address]: Maggie Coned on 02/16/20 9:[address] CM spoke with patient's daughter Miranda Carmen [phone] and she requested that patient to go to [facility]. CM called facility and spoke with Odalys and they would be awaiting referral. CM faxed clinicals . CM awaiting determination of acceptance.CM will continue to follow and assist as needed with discharge planning / needs. DCP- Discharge Planning Updated by [id number]: Hali Barrow on 02/12/20 3:[address] Patient Name: LIBIA SIERRA Admission Status: Elective Accout number: [id number] Admission Date: 02-10-2020 : 1940 Admission Diagnosis: Attending: BEHZAD PHILLIPS Current LOS: 2 Anticipated DC Date: Planned Disposition: Primary Insurance: HUMANA [place] PPO [facility] ADVANT Discharge Planning Comments: CM met w/patient and spoke w/patient's daughter, Miranda Carmen, by phone to discuss discharge planning /needs. Patient's daughter states patient lives at home alone and is independent. States home environment is safe. CM discussed IRF, SNF, and Home Health services. Explained that PT and OT will evaluate patient and make recommendations for discharge disposition. Will wait for those evals to determine discharge plan. Daughter in agreement. CM will continue to follow and assist as needed with discharge planning needs. Supply Analyst: Hali Barrow DCPIA - Discharge Planning Initial Assessment Updated by [id number]: Hali Barrow on 02/12/20 4:04 pm * How many steps to enter\exit or inside your home? 1 w/rail * PCP Dr. Hudson * Pharmacy [facility] [address] * Preadmission Environment Home Alone * ADLs Independent * Equipment Elevated [place] Seat Rolling Walker Tub Bench * Other Equipment Rollator, Tub/Shower transfer bench * List name and contact numbers for known caregivers / representatives who currently or will assist patient after discharge: Miranda Carmen, Daughter, * Community resources currently utilized None * Additional services required to return to the preadmission environment? Yes * Can the patient safely return to the preadmission environment? Yes * Has this patient been hospitalized within the prior 30 days at any hospital? No Coverage Notice Reviewer: [id number] - Maggie Conde Notice Issued Date-Time: 02/16/2020 14:00 Notice Type: Patient Choice Letter Notice Delivered To: Family Member Relationship to Patient: Daughter Airline Radio Operator Name: Miranda Carmen Delivery Method: PHONE - Phone Beti Days: Prior Verbal Notification: Yes Recipient Understood Notice: Yes Recipient Signature: Med Rec Note Co-signed by Attending: Coverage Notice Comment: [facility] Last DP export: 02/19/20 4:05 pm Patient Name: LIBIA SIERRA Page [id number] at 1721 All edits/amendments must be made on the electronic document DICTATION DATE: 02/19/201719 BLEACH PACKER: ERIK 02/19/201719 RPT#: [id number] DC DATE: STATUS: ADM IN [facility] [address] [place] [address] END OF REPORT
--- NOTE | 2020-02-19 17:31 | NUR ---
I have reviewed this patient and I concur with the Shift Assessment completed by the Licensed Practical Nurse today this shift.
[2020-02-19 20:00] VITALS: BP 99/55
[2020-02-20] VITALS: BP 133/77
--- NOTE | 2020-02-20 03:58 | NUR ---
I have reviewed this patient and I concur with the Shift Assessment completed by the Licensed Practical Nurse today this shift.
[2020-02-20 04:00] VITALS: BP 159/89
[2020-02-20 05:11] LABS: BASOPHILS 0.3 % (0-2); HEMATOCRIT 39.7 % (36.0-48.0); HEMOGLOBIN 13.2 g/dL (12-16); IMMATURE GRANULOCYTES 0.5 % (0-5); LYMPHOCYTES 22.1 % (15-50); MCH 33.2 pg (26.0-34.0); MCHC 33.2 g/dL (31.0-37.0); MEAN PLATELET VOLUME 9.1 fL (7.4-10.4); MONOCYTES 12.2 % (2-11); NEUTROPHILS 62.9 % (40-80); PLATELET COUNT 256 10x3/uL (130-400); RBC 3.97 10x6/uL (4.00-5.40); RDW 12.1 % (11.5-14.5)
[2020-02-20 05:43] LABS: ANION GAP 9.4 mmol/L (8-16); CALCIUM 8.7 mg/dL (8.5-10.1); CARBON DIOXIDE 29.2 mmol/L (21.0-32.0); POTASSIUM - SERUM 3.6 mmol/L (3.5-5.1)
[2020-02-20 08:45] VITALS: BP 157/100
--- NOTE | 2020-02-20 09:43 | NUR ---
Surgery with Dr. Mcnamara 02/12/20. Incision to back of head intact. Dressing change orders entered by Dr. Mcnamara.
--- NOTE | 2020-02-20 09:58 | NUR ---
ADMINISTERED MORNING MEDICATION, NO DIFFICULTIES. PT IS RESTING IN BED ON SIDE. DENIES ANY NEEDS AT THIS TIME. BED IN LOWEST POSITION, BED RAILS X2, CALL LIGHT WITHIN REACH. WILL CONTINUE TO MONITOR.
[2020-02-20 12:30] VITALS: BP 107/65
--- NOTE | 2020-02-20 13:17 | MORECARE ---
CASE MANAGEMENT DISCHARGE SUMMARY PATIENT: LIBIA SIERRA UNIT: [id number] ADM DATE: 02/10/20 AGE: 79 : 39 SEX: F ROOM/BED: D.2219 AUTHOR: ERWIN,DOC PHYSICIAN: REFERRING PHYSICIAN: BEHZAD PHILLIPS MD DATE OF SERVICE: 02/20/20 Discharge Plan Patient Name: LIBIA SIERRA Facility: [facility]:[place] : 1940 Planned Disposition: Correction Facility Anticipated Discharge Date: Discharge Date: Expected LOS: Initial Reviewer: [id number] Initial Review Date: 02/12/2020 Generated: 02/20/20 2:17 pm Comments DCP- Discharge Planning Updated by [id number]: Shawnee Regalado on 02/19/20 4:[address] Patient Name: LIBIA SIERRA Admission Status: Elective Accout number: [id number] Admission Date: 02-10-2020 : 1940 Admission Diagnosis:CEREBRAL INFARCTION, UNSPECIFIED Attending: BEHZAD PHILLIPS Current LOS: 9 Anticipated DC Date: Planned Disposition: Correction Facility Primary Insurance: [employer]NA CHOICE PPO MCR ADVANT Discharge Planning Comments: SPOKE WITH DAUGHTER MIRANDA AND GAVE HER UPDATE. I ALSO SPOKE TO SURENDRA WITH [facility] AND SHOULD HAVE AUTH IN THE MORNING. CM TO FOLLOW AND ASSIST NEEDED. Elevator Installer Apprentice: Shawnee Regalado Appended by Shawnee Regalado on 02/19/2020 17:14 CDT: REFERRAL FAXED TO SUR[facility] AT [phone]. DCP- Discharge Planning Updated by [id number]: Jalyn Boles on 02/17/20 9:[address] Maxine, with [facility] called to verify plan and notified of no imminent DC order. Provided CM contact number for further needed information. DCP- Discharge Planning Updated by [id number]: Maggie Conde on 02/16/20 9:[address] CM spoke with patient's daughter Miranda Carmen [phone] and she requested that patient to go to [facility]. CM called facility and spoke with Odalys and they would be awaiting referral. CM faxed clinicals . CM awaiting determination of acceptance.CM will continue to follow and assist as needed with discharge planning / needs. DCP- Discharge Planning Updated by [email or web address]: Hali Barrow on 02/12/20 3:[address] Patient Name: LIBIA SIERRA Admission Status: Elective Accout number: [id number] Admission Date: 02-10-2020 : 1940 Admission Diagnosis: Attending: BEHZAD PHILLIPS Current LOS: 2 Anticipated DC Date: Planned Disposition: Primary Insurance: HUMANA [place] PPO [facility] ADVANT Discharge Planning Comments: CM met w/patient and spoke w/patient's daughter, Miranda Carmen, by phone to discuss discharge planning /needs. Patient's daughter states patient lives at home alone and is independent. States home environment is safe. CM discussed IRF, SNF, and Home Health services. Explained that PT and OT will evaluate patient and make recommendations for discharge disposition. Will wait for those evals to determine discharge plan. Daughter in agreement. CM will continue to follow and assist as needed with discharge planning needs. Elevator Installer Apprentice: Hali Barrow DCPIA - Discharge Planning Initial Assessment Updated by [id number]: Hali Barrow on 02/12/20 4:04 pm * How many steps to enter\exit or inside your home? 1 w/rail * PCP Dr. Hudson * Pharmacy [facility] on [address] * Preadmission Environment Home Alone * ADLs Independent * Equipment Elevated [place] Seat Rolling Walker Tub Bench * Other Equipment Rollator, Tub/Shower transfer bench * List name and contact numbers for known caregivers / representatives who currently or will assist patient after discharge: Miranda Carmen, Daughter, * Community resources currently utilized None * Additional services required to return to the preadmission environment? Yes * Can the patient safely return to the preadmission environment? Yes * Has this patient been hospitalized within the prior 30 days at any hospital? No Coverage Notice Reviewer: [id number] - Maggie Conde Notice Issued Date-Time: 02/16/2020 14:00 Notice Type: Patient Choice Letter Notice Delivered To: Family Member Relationship to Patient: Daughter Dimensional Engineer Name: Miranda Carmen Delivery Method: PHONE - Phone Beti Days: Prior Verbal Notification: Yes Recipient Understood Notice: Yes Recipient Signature: Med Rec Note Co-signed by Attending: Coverage Notice Comment: [facility] Last DP export: 02/19/20 4:21 pm Patient Name: LIBIA SIERRA Page 89850 at 1317 All edits/amendments must be made on the electronic document DICTATION DATE: 02/20/201316 DETASSELING CREW SUPERVISOR: ERIK 02/20/207 RPT#: [id number] DC DATE: STATUS: ADM IN [facility] [address] [place] [address] END OF REPORT
--- NOTE | 2020-02-20 13:27 | MORECARE ---
CASE MANAGEMENT DISCHARGE SUMMARY PATIENT: LIBIA SIERRA UNIT: [id number] ADM DATE: 02/10/20 AGE: 79 : 39 SEX: F ROOM/BED: D.2219 AUTHOR: JAYSHREE HOOD PHYSICIAN: REFERRING PHYSICIAN: BEHZAD PHILLIPS MD DATE OF SERVICE: 02/20/20 Discharge Plan Patient Name: LIBIA SIERRA Facility: [facility]:[place] : 1940 Planned Disposition: Residential Facility Anticipated Discharge Date: Discharge Date: Expected LOS: Initial Reviewer: [id number] Initial Review Date: 02/12/2020 Generated: 02/20/20 2:26 pm Comments DCP- Discharge Planning Updated by [id number]: Shawnee Regalado on 02/20/20 12:[address] Patient Name: LIBIA SIERRA Admission Status: Elective Accout number: [id number] Admission Date: 02-10-2020 : 1940 Admission Diagnosis:CEREBRAL INFARCTION, UNSPECIFIED Attending: BEHZAD PHILLIPS Current LOS: 10 Anticipated DC Date: Planned Disposition: Residential Facility Primary Insurance: [employer] CHOICE PPO [employer] ADVANT Discharge Planning Comments: [facility] IS PENDING INSURANCE AUTH, POSSIBLY THURSDAY 02/22. Nuclear Equipment Research Engineer: Shawnee Regalado DCP- Discharge Planning Updated by [id number]: Shawnee Regalado on 02/19/20 4:[address] Patient Name: LIBIA SIERRA Admission Status: Elective Accout number: [id number] Admission Date: 02-10-2020 : 1940 Admission Diagnosis:CEREBRAL INFARCTION, UNSPECIFIED Attending: BEHZAD PHILLIPS Current LOS: 9 Anticipated DC Date: Planned Disposition: Residential Facility Primary Insurance: [employer]NA CHOICE PPO MCR ADVANT Discharge Planning Comments: SPOKE WITH DAUGHTER MIRANDA AND GAVE HER UPDATE. I ALSO SPOKE TO SURENDRA WITH [facility] AND SHOULD HAVE AUTH IN THE MORNING. CM TO FOLLOW AND ASSIST NEEDED. Nuclear Equipment Research Engineer: Shawnee Regalado Appended by Shawnee Regalado on 02/19/2020 17:14 CDT: REFERRAL FAXED TO [facility] AT [phone]. DCP- Discharge Planning Updated by [id number]: Jalyn Boles on 02/17/20 9:[address] Maxine, with [facility] called to verify plan and notified of no imminent DC order. Provided CM contact number for further needed information. DCP- Discharge Planning Updated by [id number]: Maggie Conde on 02/16/20 9:[address] CM spoke with patient's daughter Miranda Carmen [phone] and she requested that patient to go to [facility]. CM called facility and spoke with Odalys and they would be awaiting referral. CM faxed clinicals [phone]. CM awaiting determination of acceptance.CM will continue to follow and assist as needed with discharge planning / needs. DCP- Discharge Planning Updated by [id number]: Hali Barrow on 02/12/20 3:[address] Patient Name: LIBIA SIERRA Admission Status: Elective Accout number: [id number] Admission Date: 02-10-2020 : 1940 Admission Diagnosis: Attending: BEHZAD PHILLIPS Current LOS: 2 Anticipated DC Date: Planned Disposition: Primary Insurance: HUMANA CHOICE PPO [facility] Discharge Planning Comments: CM met w/patient and spoke w/patient's daughter, Miranda Carmen, by phone to discuss discharge planning /needs. Patient's daughter states patient lives at home alone and is independent. States home environment is safe. CM discussed IRF, SNF, and Home Health services. Explained that PT and OT will evaluate patient and make recommendations for discharge disposition. Will wait for those evals to determine discharge plan. Daughter in agreement. CM will continue to follow and assist as needed with discharge planning needs. Nuclear Equipment Research Engineer: Hali Barrow DCPIA - Discharge Planning Initial Assessment Updated by [email or web address]: Hali Barrow on 02/12/20 4:04 pm * How many steps to enter\exit or inside your home? 1 w/rail * PCP Dr. Hudson * Pharmacy [facility] on [address] * Preadmission Environment Home Alone * ADLs Independent * Equipment Elevated [place] Seat Rolling Walker Tub Bench * Other Equipment Rollator, Tub/Shower transfer bench * List name and contact numbers for known caregivers / representatives who currently or will assist patient after discharge: Miranda Carmen, Daughter, * Community resources currently utilized None * Additional services required to return to the preadmission environment? Yes * Can the patient safely return to the preadmission environment? Yes * Has this patient been hospitalized within the prior 30 days at any hospital? No Coverage Notice Reviewer: [id number] Elzbieta Conde Notice Issued Date-Time: 02/16/2020 14:00 Notice Type: Patient Choice Letter Notice Delivered To: Family Member Relationship to Patient: Daughter Leather Piece Inspector Name: Miranda Carmen Delivery Method: PHONE - Phone Beti Days: Prior Verbal Notification: Yes Recipient Understood Notice: Yes Recipient Signature: Med Rec Note Co-signed by Attending: Coverage Notice Comment: [facility] Last DP export: 02/20/20 12:17 pm Patient Name: LIBIA SIERRA Page [phone] at 1327 All edits/amendments must be made on the electronic document DICTATION DATE: 02/20/20 1326 SATURATION DIVER: ERIK 02/20/20 1326 RPT#: [id number] DC DATE: STATUS: ADM IN [facility] [address] [place] [address] END OF REPORT
--- NOTE | 2020-02-20 14:18 | NUR ---
I have reviewed this patient and I concur with the Shift Assessment completed by the Licensed Practical Nurse today this shift.
--- NOTE | 2020-02-20 15:31 | NUR ---
PT REFUSED TO TAKE COUMADIN. STATES HER DAUGHTER SAID FOR HER TO NOT TAKE COUMADIN AGAIN. THE DAUGHTER BELIEVES THAT IS WHAT IS WHAT STARTED PT ISSUES RECENTLY. WILL CALL DAUGHTER. PT RESTING IN BED, DENIES ANY NEEDS. WILL CONTINUE TO MONITOR.
--- NOTE | 2020-02-20 16:10 | NUR ---
OT NOTE: (AM) PT COMPLETED SUPINE TO SIT WITH SBA. PT COMPLETED ADL MOB WITH CGA. PT COMPLETED MILAD/DOFF SOCKS WITH SET UP AT EOB. PT COMPLETED UE AROM AX WITH FUNCTIONAL TASKS. (PM) PT COMPLETED FACE HYGIENE WITH SET UP. PT COMPLETED BUE AROM EXS. PT STATED HER LLE HURTS . NURSING NOTIFIED. [phone] THANK YOU,AMBROSIO WEST
[2020-02-20 16:47] VITALS: BP 117/69
[2020-02-20 20:00] VITALS: BP 125/66
[2020-02-21] VITALS: BP 121/64
--- NOTE | 2020-02-21 01:00 | NUR ---
I have reviewed this patient and I concur with the Shift Assessment completed by the Licensed Practical Nurse today this shift.
[2020-02-21 04:00] VITALS: BP 128/67
[2020-02-21 06:59] LABS: ANION GAP 8.3 mmol/L (8-16); CALCIUM 8.4 mg/dL (8.5-10.1); CARBON DIOXIDE 30.9 mmol/L (21.0-32.0); CREATININE - SERUM 0.9 mg/dL (0.6-1.3); INR 1.12 (0.85-1.17); POTASSIUM - SERUM 3.2 mmol/L (3.5-5.1); PROTIME 14.4 SECONDS (11.6-15.0)
[2020-02-21 07:00] VITALS: BP 114/81
[2020-02-21 07:41] LABS: HEMATOCRIT 38.9 % (36.0-48.0); HEMOGLOBIN 13.2 g/dL (12-16); LYMPHOCYTES 24.5 % (15-50); MCH 33.4 pg (26.0-34.0); MCHC 33.9 g/dL (31.0-37.0); MCV 98.5 fL (80.0-100.0); MEAN PLATELET VOLUME 9.4 fL (7.4-10.4); NEUTROPHILS 63.3 % (40-80); PLATELET COUNT 256 10x3/uL (130-400); RBC 3.95 10x6/uL (4.00-5.40); RDW 12.2 % (11.5-14.5); WBC 8.2 10x3/uL (4.8-10.8)
--- NOTE | 2020-02-21 08:30 | NUR ---
PATIENT IN BED WITH IV INTACT. NO COMPLAINTS OR SIGNS OF DISTRESS. CALL LIGHT WITHIN REACH.
[2020-02-21 11:00] VITALS: BP 114/81
[2020-02-21 15:00] VITALS: BP 124/73; BP 135/93
[2020-02-21] MEDS ORDERED: COUMADIN5 MG PO (15:02)
[2020-02-21] MEDS ORDERED: BACTRIM 400-801 TAB PO (15:05)
--- NOTE | 2020-02-21 16:20 | NUR ---
PATIENT REFUSED COUMADIN. STATES SHE NO LONGER TAKES BECAUSE EACH TIME SHE HAS BEEN ON IT SHE HAS HAD A STROKE. WILL SPEAK TO PHYSICIAN. IV INTACT. CALL LIGHT WITHIN REACH.
--- NOTE | 2020-02-21 17:45 | NUR ---
PATIENT CONTRERAS REMOVED AT THIS TIME.
[2020-02-21 20:01] VITALS: BP 155/94
--- NOTE | 2020-02-21 23:49 | NUR ---
AWAKE,ALERT.NO COMPALITNS VOICED. CLIPS INTACT TO BACK OF HEAD WITHOUT REDNESS OR EDEMA NOTED. NO DRAINAGE NOTED. RIJ INTACT WITHOUT REDNESS OR EDEMA NOTED. CL IN REACH
[2020-02-22] VITALS: BP 162/87
[2020-02-22 04:00] VITALS: BP 146/87
[2020-02-22 06:03] LABS: ANION GAP 9.9 mmol/L (8-16); CALCIUM 8.7 mg/dL (8.5-10.1); CARBON DIOXIDE 28.9 mmol/L (21.0-32.0); CREATININE - SERUM 0.9 mg/dL (0.6-1.3)
[2020-02-22 06:06] LABS: POTASSIUM - SERUM 3.8 mmol/L (3.5-5.1)
[2020-02-22 06:07] LABS: HEMATOCRIT 37.6 % (36.0-48.0); HEMOGLOBIN 12.8 g/dL (12-16); LYMPHOCYTES 26.6 % (15-50); MCH 33.7 pg (26.0-34.0); MCV 98.9 fL (80.0-100.0); NEUTROPHILS 59.5 % (40-80); PLATELET COUNT 262 10x3/uL (130-400); RDW 12.3 % (11.5-14.5); WBC 6.7 10x3/uL (4.8-10.8)
--- NOTE | 2020-02-22 06:18 | NUR ---
I have reviewed this patient and I concur with the Shift Assessment completed by the Licensed Practical Nurse today this shift.
--- NOTE | 2020-02-22 08:30 | NUR ---
PATIENT IN BED WITH IV INTACT. NO COMPLAINTS OR SIGNS OF DISTRESS.CALL LIGHT WITHIN REACH.
[2020-02-22 08:32] VITALS: BP 160/80
[2020-02-22 12:40] VITALS: BP 142/80
[2020-02-22 17:37] VITALS: BP 150/70
--- NOTE | 2020-02-22 18:00 | NUR ---
SPOKE WITH PATIENT DAUGHTER. STATED PATIENT IS SUPPOSE TO TAKE ELIQUIS 2.5 MG BID. NOTIFIED ANGELICA MCLEAN. NEW ORDERS RECIEVED AND CARRIED OUT. PATIENT IN BED WITH NO COMPLAINTS. CALL LIGHT WITHIN REACH.
[2020-02-22 20:01] VITALS: BP 168/96
--- NOTE | 2020-02-22 20:45 | NUR ---
RESTING QUEITLY WITH NO DISTESS NOTED. RESP EVEN AND UNLABORED.INCISION TO BACK OF HEAD CLEAN AND DRY.NO DRAINAGE NOTED. CL IN REACH.
[2020-02-23] VITALS (7 sets, daily range): BP systolic 125–178; BP diastolic 73–107
[2020-02-23 05:21] LABS: ANION GAP 9.9 mmol/L (8-16); CALCIUM 8.7 mg/dL (8.5-10.1); CARBON DIOXIDE 29.3 mmol/L (21.0-32.0); CREATININE - SERUM 0.9 mg/dL (0.6-1.3); POTASSIUM - SERUM 4.2 mmol/L (3.5-5.1)
[2020-02-23 05:26] LABS: HEMATOCRIT 38.6 % (36.0-48.0); LYMPHOCYTES 25.2 % (15-50); MCH 33.4 pg (26.0-34.0); MCHC 33.7 g/dL (31.0-37.0); MCV 99.2 fL (80.0-100.0); NEUTROPHILS 60.6 % (40-80); PLATELET COUNT 296 10x3/uL (130-400); RBC 3.89 10x6/uL (4.00-5.40); RDW 12.5 % (11.5-14.5)
[2020-02-23 05:28] LABS: WBC 8.4 10x3/uL (4.8-10.8)
--- NOTE | 2020-02-23 09:24 | MORECARE ---
CASE MANAGEMENT DISCHARGE SUMMARY PATIENT: LIBIA SIERRA UNIT: [id number] ADM DATE: 02/10/20 AGE: 79 : 39 SEX: F ROOM/BED: D.2219 AUTHOR: ERWIN,DOC PHYSICIAN: REFERRING PHYSICIAN: BEHZAD PHILLIPS MD DATE OF SERVICE: 02/23/20 Discharge Plan Patient Name: LIBIA SIERRA Facility: [facility]:[place] : 1940 Planned Disposition: Intermediate Facility Anticipated Discharge Date: Discharge Date: Expected LOS: Initial Reviewer: [id number] Initial Review Date: 02/12/2020 Generated: 02/23/20 10:23 am Comments DCP- Discharge Planning Updated by [email or web address]: Leslee Haddad on 02/23/20 8:[address] UPDATED CLINICALS FAXED TO [facility] ON ACCEPTANCE FOR [place] DCP- Discharge Planning Updated by [email or web address]: Shawnee Regalado on 02/20/20 12:[address] Patient Name: LIBIA SIERRA Admission Status: Elective Accout number: [id number] Admission Date: 02-10-2020 : 1940 Admission Diagnosis:CEREBRAL INFARCTION, UNSPECIFIED Attending: BEHZAD PHILLIPS Current LOS: 10 Anticipated DC Date: Planned Disposition: Intermediate Facility Primary Insurance: HUMANA CHOICE PPO M[employer] Discharge Planning Comments: [facility] IS PENDING INSURANCE AUTH, POSSIBLY THURSDAY 02/22. Abatement Worker: Shawnee Regalado DCP- Discharge Planning Updated by [id number]: Shawnee Regalado on 02/19/20 4:[address] Patient Name: LIBIA SIERRA Admission Status: Elective Accout number: [id number] Admission Date: 02-10-2020 : 1940 Admission Diagnosis:CEREBRAL INFARCTION, UNSPECIFIED Attending: BEHZAD PHILLIPS Current LOS: 9 Anticipated DC Date: Planned Disposition: Intermediate Facility Primary Insurance: HUMANA CHOICE PPO M[employer] Discharge Planning Comments: SPOKE WITH DAUGHTER MIRANDA AND GAVE HER UPDATE. I ALSO SPOKE TO SURENDRA WITH [facility] AND SHOULD HAVE AUTH IN THE MORNING. CM TO FOLLOW AND ASSIST NEEDED. Abatement Worker: Shawnee Regalado Appended by Shawnee Regalado on 02/19/2020 17:14 CDT: REFERRAL FAXED TO [facility] AT [phone]. DCP- Discharge Planning Updated by [id number]: Jalyn Bonelroy on 02/17/20 9:[address] Maxine, with [facility] called to verify plan and notified of no imminent DC order. Provided CM contact number for further needed information. DCP- Discharge Planning Updated by [id number]: Maggie Conde on 02/16/20 9:[address] CM spoke with patient's daughter Miranda Carmen [phone] and she requested that patient to go to [facility]. CM called facility and spoke with Odalys and they would be awaiting referral. CM faxed clinicals . CM awaiting determination of acceptance.CM will continue to follow and assist as needed with discharge planning / needs. DCP- Discharge Planning Updated by [email or web address]: Hali Barrow on 02/12/20 3:[address] Patient Name: LIBIA SIERRA Admission Status: Elective Accout number: [id number] Admission Date: 02-10-2020 : 1940 Admission Diagnosis: Attending: BEHZAD PHILLIPS Current LOS: 2 Anticipated DC Date: Planned Disposition: Primary Insurance: HUMANA CHOICE PPO [facility] Discharge Planning Comments: CM met w/patient and spoke w/patient's daughter, Miranda Carmen, by phone to discuss discharge planning /needs. Patient's daughter states patient lives at home alone and is independent. States home environment is safe. CM discussed IRF, SNF, and Home Health services. Explained that PT and OT will evaluate patient and make recommendations for discharge disposition. Will wait for those evals to determine discharge plan. Daughter in agreement. CM will continue to follow and assist as needed with discharge planning needs. Abatement Worker: Hali Barrow DCPIA - Discharge Planning Initial Assessment Updated by [email or web address]: Hali Barrow on 02/12/20 4:04 pm * How many steps to enter\exit or inside your home? 1 w/rail * PCP Dr. Hudson * Pharmacy [facility] on [address] * Preadmission Environment Home Alone * ADLs Independent * Equipment Elevated [place] Seat Rolling Walker Tub Bench * Other Equipment Rollator, Tub/Shower transfer bench * List name and contact numbers for known caregivers / representatives who currently or will assist patient after discharge: Miranad Carmen, Daughter, * Community resources currently utilized None * Additional services required to return to the preadmission environment? Yes * Can the patient safely return to the preadmission environment? Yes * Has this patient been hospitalized within the prior 30 days at any hospital? No Coverage Notice Reviewer: [id number] Elzbieta Conde Notice Issued Date-Time: 02/16/2020 14:00 Notice Type: Patient Choice Letter Notice Delivered To: Family Member Relationship to Patient: Daughter Cold Patcher Name: Miranda Carmen Delivery Method: PHONE - Phone Beti Days: Prior Verbal Notification: Yes Recipient Understood Notice: Yes Recipient Signature: Med Rec Note Co-signed by Attending: Coverage Notice Comment: [facility] Last DP export: 02/20/20 12:27 pm Patient Name: LIBIA SIERRA Page 42311 at 0924 All edits/amendments must be made on the electronic document DICTATION DATE: 02/23/20922 TRADE PROMOTION ANALYST: ERIK 02/23/20922 RPT#: [id number] DC DATE: STATUS: ADM IN [facility] [address] [place] [address] END OF REPORT
--- NOTE | 2020-02-23 11:15 | MORECARE ---
CASE MANAGEMENT DISCHARGE SUMMARY PATIENT: LIBIA SIERRA UNIT: [id number] ADM DATE: 02/10/20 AGE: 79 : 39 SEX: F ROOM/BED: D.2219 AUTHOR: ERWIN,DOC PHYSICIAN: REFERRING PHYSICIAN: BEHZAD PHILLIPS MD DATE OF SERVICE: 02/23/20 Discharge Plan Patient Name: LIBIA SIERRA Facility: [facility]:[place] : 1940 Planned Disposition: [facility] Facility Anticipated Discharge Date: Discharge Date: Expected LOS: Initial Reviewer: [id number] Initial Review Date: 02/12/2020 Generated: 02/23/20 12:15 pm Comments DCP- Discharge Planning Updated by [email or web address]: Leslee Haddad on 02/23/20 10:[address] spoke with Miranda Carmen, patients daughter and updated her on status DCP- Discharge Planning Updated by [id number]: Leslee Haddad on 02/23/20 8:[address] UPDATED CLINICALS FAXED TO [facility] ON [facility]EPTANCE FOR [facility] DCP- Discharge Planning Updated by [id number]: Shawnee Regalado on 02/20/20 12:[address] Patient Name: LIBIA SIERRA Admission Status: Elective Accout number: [id number] Admission Date: 02-10-2020 : 1940 Admission Diagnosis:CEREBRAL INFARCTION, UNSPECIFIED Attending: BEHZAD PHILLIPS Current LOS: 10 Anticipated DC Date: Planned Disposition: [facility] Facility Primary Insurance: HUMANA CHOICE PPO [employer] Discharge Planning Comments: [facility] IS PENDING INSURANCE AUTH, POSSIBLY THURSDAY 02/22. Orthopedic Physician: Shawnee Regalado DCP- Discharge Planning Updated by [id number]: Shawnee Regalado on 02/19/20 4:[address] Patient Name: LIBIA SIERRA Admission Status: Elective Accout number: [id number] Admission Date: 02-10-2020 : 1940 Admission Diagnosis:CEREBRAL INFARCTION, UNSPECIFIED Attending: BEHZAD PHILLIPS Current LOS: 9 Anticipated DC Date: Planned Disposition: [facility] Facility Primary Insurance: HUMANA CHOICE PPO [employer] Discharge Planning Comments: SPOKE WITH DAUGHTER MIRANDA AND GAVE HER UPDATE. I ALSO SPOKE TO SURENDRA WITH [facility] AND SHOULD HAVE AUTH IN THE MORNING. CM TO FOLLOW AND ASSIST NEEDED. Orthopedic Physician: Shawnee Regalado Appended by Shawnee Regalado on 02/19/2020 17:14 CDT: REFERRAL FAXED TO [facility] AT [phone]. DCP- Discharge Planning Updated by [email or web address]: Jalyn Elvi on 02/17/20 9:[address] Maxine, with [facility] called to verify plan and notified of no imminent DC order. Provided CM contact number for further needed information. DCP- Discharge Planning Updated by [id number]: Maggie Conde on 02/16/20 9:[address] CM spoke with patient's daughter Miranda Carmen [phone] and she requested that patient to go to [facility]. CM called facility and spoke with Odalys and they would be awaiting referral. CM faxed clinicals [phone]. CM awaiting determination of acceptance.CM will continue to follow and assist as needed with discharge planning / needs. DCP- Discharge Planning Updated by [email or web address]: Hali Barrow on 02/12/20 3:[address] Patient Name: LIBIA SIERRA Admission Status: Elective Accout number: [id number] Admission Date: 02-10-2020 : 1940 Admission Diagnosis: Attending: BEHZAD PHILLIPS Current LOS: 2 Anticipated DC Date: Planned Disposition: Primary Insurance: HUMANA CHOICE PPO [facility] Discharge Planning Comments: CM met w/patient and spoke w/patient's daughter, Miranda Carmen, by phone to discuss discharge planning /needs. Patient's daughter states patient lives at home alone and is independent. States home environment is safe. CM discussed IRF, SNF, and Home Health services. Explained that PT and OT will evaluate patient and make recommendations for discharge disposition. Will wait for those evals to determine discharge plan. Daughter in agreement. CM will continue to follow and assist as needed with discharge planning needs. Orthopedic Physician: Hali Barrow DCPIA - Discharge Planning Initial Assessment Updated by [email or web address]: Hali Barrow on 02/12/20 4:04 pm * How many steps to enter\exit or inside your home? 1 w/rail * PCP Dr. Hudson * Pharmacy [facility] on [address] * Preadmission Environment Home Alone * ADLs Independent * Equipment Elevated [place] Seat Rolling Walker Tub Bench * Other Equipment Rollator, Tub/Shower transfer bench * List name and contact numbers for known caregivers / representatives who currently or will assist patient after discharge: Miranda Carmen, Daughter, * Community resources currently utilized None * Additional services required to return to the preadmission environment? Yes * Can the patient safely return to the preadmission environment? Yes * Has this patient been hospitalized within the prior 30 days at any hospital? No Coverage Notice Reviewer: [id number] - Maggie Conde Notice Issued Date-Time: 02/16/2020 14:00 Notice Type: Patient Choice Letter Notice Delivered To: Family Member Relationship to Patient: Daughter [id number] Armor Crewman Name: Miranda Carmen Delivery Method: PHONE - Phone Beti Days: Prior Verbal Notification: Yes Recipient Understood Notice: Yes Recipient Signature: Med Rec Note Co-signed by Attending: Coverage Notice [facility] Last DP export: 02/23/20 8:24 a Patient Name: LIBIA SIERRA Page 73484 at 1115 All edits/amendments must be made on the electronic document DICTATION DATE: 02/23/20 111 FIBERGLASS GRINDER: ERIK 02/23/20 111 RPT#: [id number] DC DATE: STATUS: ADM IN [facility] [address] [place] [address] END OF REPORT
--- NOTE | 2020-02-23 13:25 | NUR ---
Nutrition follow-up: Diet: Regular PO intake ~40% average of last 3 meals Labs reviewed Wt: 137# Will encourage increased po intake and honor all food preferences. RDN following.
--- NOTE | 2020-02-23 15:10 | NUR ---
OT NOTE: PT DOING BETTER PHYSICALLY..ABLE TO PERFORM BED MOB WITH CGA. IN ROOM AMBULATION WITH MIN ASSIST; STANDING BALANCE IS FAIR; SIMPLE GROOMING TASK WITH MIN ASSIST; MIN ASSIST WITH DONNING GOWN. RECOMMEND CONTINUED THERAPY PT IS UNSAFE TO RETURN HOME TO INDEP LIVING AT THIS TIME SHAHEEN ENCISO, OTR/L [phone]
--- NOTE | 2020-02-23 15:49 | NUR ---
OT NOTE: PT COMPLETED ADL MOB WITH RW WITH CGA. PT COMPLETED SIT TO STAND WITH CGA. PT COMPLETED SUPINE TO SIT WITH SBA. PT COMPLETED BUE AROM EXS AT EOB WITH SBA. [phone] THANK YOU,AMBROSIO WEST
--- NOTE | 2020-02-23 20:36 | NUR ---
REC'D. [facility] SHIFT WALKING ROUNDS. SITTING ON BEDSIDE COMMODE.DENIES ANY PAIN OR DISCOMFORT AT PRESENT TIME. WILL CONTINUE TO MONITOR FOR ANY CHGES AND FOLLOW CURRENT PLAN OF CARE
--- NOTE | 2020-02-24 00:02 | NUR ---
I have reviewed this patient and I concur with the Shift Assessment completed by the Licensed Practical Nurse today this shift.
[2020-02-24 04:00] VITALS: BP 189/92
[2020-02-24 08:05] LABS: ALBUMIN 2.8 g/dL (3.4-5.0); ANION GAP 6.7 mmol/L (8-16); BILIRUBIN - TOTAL 0.49 mg/dL (0.2-1.3); CALCIUM 8.3 mg/dL (8.5-10.1); CARBON DIOXIDE 30.9 mmol/L (21.0-32.0); CREATININE - SERUM 0.9 mg/dL (0.6-1.3); POTASSIUM - SERUM 3.6 mmol/L (3.5-5.1); PROTEIN - SERUM 5.8 g/dL (6.4-8.2)
[2020-02-24 09:03] VITALS: BP 151/86
[2020-02-24 09:49] LABS: HEMATOCRIT 37.3 % (36.0-48.0); HEMOGLOBIN 12.7 g/dL (12-16); LYMPHOCYTES 24.6 % (15-50); MCH 33.7 pg (26.0-34.0); MCV 98.9 fL (80.0-100.0); MEAN PLATELET VOLUME 9.7 fL (7.4-10.4); NEUTROPHILS 62.7 % (40-80); PLATELET COUNT 269 10x3/uL (130-400); RBC 3.77 10x6/uL (4.00-5.40); RDW 12.3 % (11.5-14.5)
[2020-02-24 09:50] LABS: WBC 6.1 10x3/uL (4.8-10.8)
[2020-02-24] MEDS ORDERED: ELIQUIS2.5 MG PO (11:28)
--- NOTE | 2020-02-24 11:48 | MORECARE ---
CASE MANAGEMENT DISCHARGE SUMMARY PATIENT: LIBIA SIERRA UNIT: [id number] ADM DATE: 02/10/20 AGE: 79 : 39 SEX: F ROOM/BED: D.2219 AUTHOR: ERWIN,DOC PHYSICIAN: REFERRING PHYSICIAN: BEHZAD PHILLIPS MD DATE OF SERVICE: 02/24/20 Discharge Plan Patient Name: LIBIA SIERRA Facility: [facility]:[place] : 1940 Planned Disposition: Retirement Facility Anticipated Discharge Date: Discharge Date: Expected LOS: Initial Reviewer: [id number] Initial Review Date: 02/12/2020 Generated: 02/24/20 12:48 pm Comments DCP- Discharge Planning Updated by [id number]: Leslee Haddad on 02/24/20 10:[address] PATIENT WILL BE DISCHARGING TO [facility] TODAY TO A SKILLED BED. THEY WILL PICK HER UP AT 1330. IMM SERVED AND EXPLAINED. I HAVE CALLED AND SPOKE WITH MIRANDA (PATIENT'S DAUGHTER) TO LET HER KNOW AND I WILL FAX CLINICALS OVER TO [facility] CM TO FOLLOW AND ASSIST DCP- Discharge Planning Updated by [email or web address]: Leslee Haddad on 02/23/20 10:[address] spoke with Miranda Carmen, patients daughter and updated her on status DCP- Discharge Planning Updated by [email or web address]: Leslee Haddad on 02/23/20 8:[address] UPDATED CLINICALS FAXED TO [facility] ON ACCEPTANCE FOR [facility] DCP- Discharge Planning Updated by [email or web address]: Shawnee Regalado on 02/20/20 12:[address] Patient Name: LIBIA SIERRA Admission Status: Elective Accout number: [id number] Admission Date: 02-10-2020 : 1940 Admission Diagnosis:CEREBRAL INFARCTION, UNSPECIFIED Attending: BEHZAD PHILLIPS Current LOS: 10 Anticipated DC Date: Planned Disposition: Retirement Facility Primary Insurance: HUMANA CHOICE PPO [employer] Discharge Planning Comments: [facility] IS PENDING INSURANCE AUTH, POSSIBLY THURSDAY 02/22. Analog Circuit Designer: Shawnee Regalado DCP- Discharge Planning Updated by [email or web address]: Shawnee Regalado on 02/19/20 4:[address] Patient Name: LIBIA SIERRA Admission Status: Elective Accout number: [id number] Admission Date: 02-10-2020 : 1940 Admission Diagnosis:CEREBRAL INFARCTION, UNSPECIFIED Attending: BEHZAD PHILLIPS Current LOS: 9 Anticipated DC Date: Planned Disposition: Retirement Facility Primary Insurance: HUMANA CHOICE PPO [employer] Discharge Planning Comments: SPOKE WITH DAUGHTER MIRANDA AND GAVE HER UPDATE. I ALSO SPOKE TO SURENDRA WITH [facility] AND SHOULD HAVE AUTH IN THE MORNING. CM TO FOLLOW AND ASSIST NEEDED. Analog Circuit Designer: Shawnee Regalado Appended by Shawnee Regalado on 02/19/2020 17:14 CDT: REFERRAL FAXED TO [facility] AT [phone]. DCP- Discharge Planning Updated by [id number]: Jalyn Boles on 02/17/20 9:[address] Maxine, with [facility] called to verify plan and notified of no imminent DC order. Provided CM contact number for further needed information. DCP- Discharge Planning Updated by [id number]: Maggie Conde on 02/16/20 9:[address] CM spoke with patient's daughter Miranda Carmen [phone] and she requested that patient to go to [facility]. CM called facility and spoke with Odalys and they would be awaiting referral. CM faxed clinicals . CM awaiting determination of acceptance.CM will continue to follow and assist as needed with discharge planning / needs. DCP- Discharge Planning Updated by [id number]: Hali Barrow on 02/12/20 3:[address] Patient Name: LIBIA SIERRA Admission Status: Elective Accout number: [id number] Admission Date: 02-10-2020 : 1940 Admission Diagnosis: Attending: BEHZAD PHILLIPS Current LOS: 2 Anticipated DC Date: Planned Disposition: Primary Insurance: HUMANA CHOICE PPO [employer] Discharge Planning Comments: CM met w/patient and spoke w/patient's daughter, Miranda Carmen, by phone to discuss discharge planning /needs. Patient's daughter states patient lives at home alone and is independent. States home environment is safe. CM discussed IRF, SNF, and Home Health services. Explained that PT and OT will evaluate patient and make recommendations for discharge disposition. Will wait for those evals to determine discharge plan. Daughter in agreement. CM will continue to follow and assist as needed with discharge planning needs. Analog Circuit Designer: Hali Barrow DCPIA - Discharge Planning Initial Assessment Updated by [email or web address]: Hali Barrow on 02/12/20 4:04 pm * How many steps to enter\exit or inside your home? 1 w/rail * PCP Dr. Hudson * Pharmacy [facility] on [address] * Preadmission Environment Home Alone * ADLs Independent * Equipment Elevated [place] Seat Rolling Walker Tub Bench * Other Equipment Rollator, Tub/Shower transfer bench * List name and contact numbers for known caregivers / representatives who currently or will assist patient after discharge: Miranda Carmen, Daughter, * Community resources currently utilized None * Additional services required to return to the preadmission environment? Yes * Can the patient safely return to the preadmission environment? Yes * Has this patient been hospitalized within the prior 30 days at any hospital? No Coverage Notice Reviewer: [id number] Elzbieta Conde Notice Issued Date-Time: 02/16/2020 14:00 Notice Type: Patient Choice Letter Notice Delivered To: Family Member Relationship to Patient: Daughter Behavioral Health Case Manager Name: Miranda Carmen Delivery Method: PHONE - Phone Beti Days: Prior Verbal Notification: Yes Recipient Understood Notice: Yes Recipient Signature: Med Rec Note Co-signed by Attending: Coverage Notice Comment: [facility] Reviewer: [id number] Elzbieta Haddad Notice Issued Date-Time: 02/24/2020 11:35 Notice Type: IM Discharge Notice Notice Delivered To: Patient Relationship to Patient: Behavioral Health Case Manager Name: Delivery Method: HAND - Hand Delivered Beti Days: Prior Verbal Notification: Recipient Understood Notice: Yes Recipient Signature: Yes Med Rec Note Co-signed by Attending: Coverage Notice Comment: IMM SERVED Last DP export: 02/23/20 10:15 a Patient Name: LIBIA SIERRA Page 28598 at 1148 All edits/amendments must be made on the electronic document DICTATION DATE: 02/24/20 1148 GEOSCIENCE PROFESSOR: ERIK 02/24/20 1148 RPT#: [id number] DC DATE: STATUS: ADM IN [facility] [address] [facility] [place] [address] END OF REPORT
[2020-02-24 11:56] LABS: INR 1.11 (0.85-1.17); PROTIME 14.3 SECONDS (11.6-15.0)
[2020-02-24 12:48] VITALS: BP 118/70
--- NOTE | 2020-02-24 13:52 | MORECARE ---
CASE MANAGEMENT DISCHARGE SUMMARY PATIENT: LIBIA SIERRA UNIT: [id number] ADM DATE: 02/10/20 AGE: 79 : 39 SEX: F ROOM/BED: D.2219 AUTHOR: ERWIN,DOC PHYSICIAN: REFERRING PHYSICIAN: BEHZAD PHILLIPS MD DATE OF SERVICE: 02/24/20 Discharge Plan Patient Name: LIBIA SIERRA Facility: [facility]:[place] : 1940 Planned Disposition: Assisted Facility Anticipated Discharge Date: Discharge Date: Expected LOS: Initial Reviewer: [id number] Initial Review Date: 02/12/2020 Generated: 02/24/20 2:51 pm Comments DCP- Discharge Planning Updated by [id number]: Leslee Haddad on 02/24/20 12:[address] THEARPY BEGAN AMBULATING PATIENT, SHE BECAME DIZZY AND UNSTEADY CHAIR WAS PROVIDED AND STATED SHE DIDN'T KNOW WHY SHE FEELS THIS WAY HAD EMESIS. PATIENT BACK TO BED, POSITIVE PRINTER OPERATOR NOTIFIED NEW ORDERS RECEIVED DC ON HOLD. [facility] NOTIFIED AND PATIENT'S DAUGHTER NOTIFIED DCP- Discharge Planning Updated by [id number]: Leslee Haddad on 02/24/20 10:[address] PATIENT WILL BE DISCHARGING TO [facility] TODAY TO A SKILLED BED. THEY WILL PICK HER UP AT 1330. IMM SERVED AND EXPLAINED. I HAVE CALLED AND SPOKE WITH MIRANDA (PATIENT'S DAUGHTER) TO LET HER KNOW AND I WILL FAX CLINICALS OVER TO [facility] CM TO FOLLOW AND ASSIST DCP- Discharge Planning Updated by [id number]: Leslee Haddad on 02/23/20 10:[address] spoke with Miranda Kermit, patients daughter and updated her on status DCP- Discharge Planning Updated by [id number]: Leslee Haddad on 02/23/20 8:[address] UPDATED CLINICALS FAXED TO [facility] ON ACCEPTANCE FOR [facility] DCP- Discharge Planning Updated by [id number]: Shawnee Regalado on 02/20/20 12:[address] Patient Name: LIBIA SIERRA Admission Status: Elective Accout number: [id number] Admission Date: 02-10-2020 : 1940 Admission Diagnosis:CEREBRAL INFARCTION, UNSPECIFIED Attending: BEHZAD PHILLIPS Current LOS: 10 Anticipated DC Date: Planned Disposition: Assisted Facility Primary Insurance: HU[employer]NA CHOICE PPO MCR ADVANT Discharge Planning Comments: [facility] IS PENDING INSURANCE AUTH, POSSIBLY THURSDAY 02/22. Radiochemical Technician: Shawnee Regalado DCP- Discharge Planning Updated by [id number]: Shawnee Regalado on 02/19/20 4:[address] Patient Name: LIBIA SIERRA Admission Status: Elective Accout number: [id number] Admission Date: 02-10-2020 : 1940 Admission Diagnosis:CEREBRAL INFARCTION, UNSPECIFIED Attending: BEHZAD PHILLIPS Current LOS: 9 Anticipated DC Date: Planned Disposition: Assisted Facility Primary Insurance: HU[employer]NA CHOICE PPO MCR ADVANT Discharge Planning Comments: SPOKE WITH DAUGHTER MIRANDA AND GAVE HER UPDATE. I ALSO SPOKE TO [facility]DR[facility] WITH [facility] AND SHOULD HAVE AUTH IN THE MORNING. CM TO FOLLOW AND ASSIST NEEDED. Radiochemical Technician: Shawnee Regalado Appended by Shawnee Regalado on 02/19/2020 17:14 CDT: REFERRAL FAXED TO [facility] AT [phone]. DCP- Discharge Planning Updated by [id number]: Jalyn Boles on 02/17/20 9:[address] Maxine, with [facility] called to verify plan and notified of no imminent DC order. Provided CM contact number for further needed information. DCP- Discharge Planning Updated by [id number]: Maggie Conde on 02/16/20 9:[address] CM spoke with patient's daughter Miranda Carmen [phone] and she requested that patient to go to [facility]. CM called facility and spoke with Odalys and they would be awaiting referral. CM faxed clinicals . CM awaiting determination of acceptance.CM will continue to follow and assist as needed with discharge planning / needs. DCP- Discharge Planning Updated by [id number]: Hali Barrow on 02/12/20 3:[address] Patient Name: LIBIA SIERRA Admission Status: Elective Accout number: [id number] Admission Date: 02-10-2020 : 1940 Admission Diagnosis: Attending: BEHZAD PHILLIPS Current LOS: 2 Anticipated DC Date: Planned Disposition: Primary Insurance: HUMANA [employer] PPO [facility] Discharge Planning Comments: CM met w/patient and spoke w/patient's daughter, Miranda Carmen, by phone to discuss discharge planning /needs. Patient's daughter states patient lives at home alone and is independent. States home environment is safe. CM discussed IRF, SNF, and Home Health services. Explained that PT and OT will evaluate patient and make recommendations for discharge disposition. Will wait for those evals to determine discharge plan. Daughter in agreement. CM will continue to follow and assist as needed with discharge planning needs. Radiochemical Technician: Hali Barrow DCPIA - Discharge Planning Initial Assessment Updated by [id number]: Hali Barrow on 02/12/20 4:04 pm * How many steps to enter\exit or inside your home? 1 w/rail * PCP Dr. Hudson * Pharmacy [facility] on [address] * Preadmission Environment Home Alone * ADLs Independent * Equipment Elevated Toliet Seat Rolling Walker Tub Bench * Other Equipment Rollator, Tub/Shower transfer bench * List name and contact numbers for known caregivers / representatives who currently or will assist patient after discharge: Miranda Carmen, Daughter, * Community resources currently utilized None * Additional services required to return to the preadmission environment? Yes * Can the patient safely return to the preadmission environment? Yes * Has this patient been hospitalized within the prior 30 days at any hospital? No Coverage Notice Reviewer: [id number] Elzbieta Conde Notice Issued Date-Time: 02/16/2020 14:00 Notice Type: Patient Choice Letter Notice Delivered To: Family Member Relationship to Patient: Daughter Adjunct Latin Professor Name: Miranda Carmen Delivery Method: PHONE - Phone Beti Days: Prior Verbal Notification: Yes Recipient Understood Notice: Yes Recipient Signature: Med Rec Note Co-signed by Attending: Coverage Notice Comment: [facility] Reviewer: [id number] Elzbieta Haddad Notice Issued Date-Time: 02/24/2020 11:35 Notice Type: IM Discharge Notice Notice Delivered To: Patient Relationship to Patient: Adjunct Latin Professor Name: Delivery Method: HAND - Hand Delivered Beti Days: Prior Verbal Notification: Recipient Understood Notice: Yes Recipient Signature: Yes Med Rec Note Co-signed by Attending: Coverage Notice Comment: IMM SERVED Last DP export: 02/24/20 10:48 a Patient Name: LIBIA SIERRA Page 96514 at 1352 All edits/amendments must be made on the electronic document DICTATION DATE: 02/24/20 1351 PRODUCE WRAPPER: ERIK 02/24/20 1351 RPT#: [id number] DC DATE: STATUS: ADM IN [facility] [address] [place] [address] END OF REPORT
--- NOTE | 2020-02-24 13:55 | NUR ---
OT NOTE: PT WAS SCHEDULED FOR DC TODAY, BUT AGREEABLE TO GET UP SHE HAS BEEN IN BED MOST OF DAY. BED MOB WITH MIN ASSIST. SITTING BALANCE ON EOB WAS GOOD. BEGAN AMBULATING WITH MIN ASSIST OF PT AND OT DUE TO NEED FOR ASSIST WITH 02. PT AMB A FEW FEET AND BECAME VERY DIZZY.. UNSTEADY AND STUMBLED SEVERAL TIMES WHERE PHY THY HAD TO CATCH HER. PULLED UP CHAIR AND ASSISTED PT TO SITTING POSITION. PT REPORTED FEELING SICK AND THEN VOMITTED . ASSISTED PT BACK TO BED WITH MOD ASSIST. PT REPORTED FEELING BETTER SINCE LIEING DOWN. NURSING AND CM INFORMED. DC ON HOLD TODAY SHAHEEN ENCISO, OTR/L [id number]
--- NOTE | 2020-02-24 15:55 | NUR ---
OT NOTE: PT COMPLETED SUPINE TO SIT WITH SBA. PT COMPLETED SIDE ROLLING WITH SBA. PT COMPLETED FACE HYGIENE WITH SET UP. [id number] THANK YOU,AMBROSIO WEST
[2020-02-24 16:47] LABS: CKMB 1.4 U/L (0.0-3.6); CREATINE KINASE 25 UL (21-215); TROPONIN-I < 0.017 ng/mL (0.000-0.060)
[2020-02-24 17:43] VITALS: BP 143/86
[2020-02-24 20:00] VITALS: BP 138/58
[2020-02-24 23:44] LABS: CKMB 0.5 U/L (0.0-3.6); CREATINE KINASE 26 UL (21-215)
[2020-02-24 23:49] LABS: TROPONIN-I < 0.017 ng/mL (0.000-0.060)
[2020-02-25] VITALS: BP 128/79
--- NOTE | 2020-02-25 00:58 | NUR ---
PT RESTING IN BED. EYES CLOSED. NO SIGNS OF DISTRESS. BREATHING EVEN AND UNLABORED. IV SITE RT JUGULAR CENTRAL LINE. DRESSING CLEAN DRY AND INTACT. NO SIGNS OF INFECTION. IV SL. RT EYE BRUISE PRESENT FROM FALL AT HOME. BOWEL SOUNDS ACTIVEX4. TELE MONITOR ON 63 CONTROLLED A-FIB. STABLES PRESENT BACK OF HEAD. OPEN TO AIR. CLEAN DRY AND INTACT. NO SIGNS OF INFECTION. WILL CONTINUE PLAN OF CARE. CALL LIGHT IN REACH. BED LOWERED AND LOCKED. BED RAILS UPX2.
--- NOTE | 2020-02-25 01:53 | NUR ---
I have reviewed this patient and I concur with the Shift Assessment completed by the Licensed Practical Nurse today this shift.
--- NOTE | 2020-02-25 01:53 | NUR ---
I have reviewed this patient and I concur with the Shift Assessment completed by the Licensed Practical Nurse today this shift.
[2020-02-25 04:00] VITALS: BP 141/78
[2020-02-25 05:45] LABS: BASOPHILS 0.4 % (0-2); EOSINOPHILS 4.6 % (0-7); HEMATOCRIT 36.6 % (36.0-48.0); IMMATURE GRANULOCYTES 0.2 % (0-5); LYMPHOCYTES 28.8 % (15-50); MCH 33.1 pg (26.0-34.0); MCHC 32.8 g/dL (31.0-37.0); MEAN PLATELET VOLUME 9.1 fL (7.4-10.4); PLATELET COUNT 256 10x3/uL (130-400); RBC 3.62 10x6/uL (4.00-5.40); RDW 12.4 % (11.5-14.5); WBC 5.7 10x3/uL (4.8-10.8)
[2020-02-25 06:12] LABS: MCV 101.1 fL (80.0-100.0)
[2020-02-25 06:30] LABS: ALBUMIN 2.7 g/dL (3.4-5.0); ALKALINE PHOSPHATASE 116 U/L (30-120); ALT (SGPT) 22 U/L (10-68); BILIRUBIN - TOTAL 0.42 mg/dL (0.2-1.3); CALC OSMOLALITY 272 mosm/kg (275-300); CALCIUM 8.4 mg/dL (8.5-10.1); CHLORIDE - SERUM 103 mmol/L (98-107); CKMB 0.9 U/L (0.0-3.6); CREATINE KINASE 21 UL (21-215); GLUCOSE 88 mg/dL (74-106); POTASSIUM - SERUM 3.5 mmol/L (3.5-5.1); PROTEIN - SERUM 5.2 g/dL (6.4-8.2); SODIUM 136 mmol/L (136-145); TROPONIN-I < 0.017 ng/mL (0.000-0.060); UREA NITROGEN 19 mg/dL (7-18); eGFR NON AFRICAN AMERICAN 56 mL/min (90-120)
[2020-02-25 09:53] VITALS: BP 124/86
--- NOTE | 2020-02-25 10:43 | NUR ---
RESTING IN BED, NO DISTRESS NOTED, WILL SEE IF PT CAN DC TODAY, SPOKE WITH FAMILY X2 THIS AM
[2020-02-25 13:21] VITALS: BP 132/78
[2020-02-25] MEDS ORDERED: MECLIZINE HCL12.5 MG PO (13:21)
--- NOTE | 2020-02-25 13:38 | MORECARE ---
CASE MANAGEMENT DISCHARGE SUMMARY PATIENT: LIBIA SIERRA UNIT: [id number] ADM DATE: 02/10/20 AGE: 79 : 39 SEX: F ROOM/BED: D.2219 AUTHOR: ERWIN,DOC PHYSICIAN: REFERRING PHYSICIAN: BEHZAD PHILLIPS MD DATE OF SERVICE: 02/25/20 Discharge Plan Patient Name: LIBIA SIERRA Facility: [facility]:[place] : 1940 Planned Disposition: [facility] Facility Anticipated Discharge Date: Discharge Date: Expected LOS: Initial Reviewer: [id number] Initial Review Date: 02/12/2020 Generated: 02/25/20 2:37 pm Comments DCP- Discharge Planning Updated by [id number]: Leslee Haddad on 02/25/20 12:[address] Patient will be discharged to [facility] to a Skilled bed. I have called her daughter and let her know they will be picking her up at 3:45 pm DCP- Discharge Planning Updated by [email or web address]: Leslee Haddad on 02/24/20 12:[address] THEARPY BEGAN AMBULATING PATIENT, SHE BECAME DIZZY AND UNSTEADY CHAIR WAS PROVIDED AND STATED SHE DIDN'T KNOW WHY SHE FEELS THIS WAY HAD EMESIS. PATIENT BACK TO BED, GROUP INSURANCE SPECIALIST NOTIFIED NEW ORDERS RECEIVED DC ON HOLD. [facility] NOTIFIED AND PATIENT'S DAUGHTER NOTIFIED DCP- Discharge Planning Updated by [id number]: Leslee Haddad on 02/24/20 10:[address] PATIENT WILL BE DISCHARGING TO [facility] TODAY TO A SKILLED BED. THEY WILL PICK HER UP AT 1330. IMM SERVED AND EXPLAINED. I HAVE CALLED AND SPOKE WITH MIRANDA (PATIENT'S DAUGHTER) TO LET HER KNOW AND I WILL FAX CLINICALS OVER TO [facility] CM TO FOLLOW AND ASSIST DCP- Discharge Planning Updated by [id number]: Leslee Haddad on 02/23/20 10:[address] spoke with Miranda Carmen, patients daughter and updated her on status DCP- Discharge Planning Updated by [id number]: Leslee Haddad on 02/23/20 8:[address] UPDATED CLINICALS FAXED TO [facility], WAITING ON ACCEPTANCE FOR [place] DCP- Discharge Planning Updated by [id number]: hSawnee Regalado on 02/20/20 12:[address] Patient Name: LIBIA SIERRA Admission Status: Elective Accout number: [id number] Admission Date: 02-10-2020 : 1940 Admission Diagnosis:CEREBRAL INFARCTION, UNSPECIFIED Attending: BEHZAD PHILLIPS Current LOS: 10 Anticipated DC Date: Planned Disposition: [facility] Facility Primary Insurance: HUMANA [employer] PPO M[employer] ADVANT Discharge Planning Comments: [facility] IS PENDING INSURANCE AUTH, POSSIBLY THURSDAY 02/22. Staining Machine Operator: Shawnee Regalado DCP- Discharge Planning Updated by [email or web address]: Shawnee Regalado on 02/19/20 4:[address] Patient Name: LIBIA SIERRA Admission Status: Elective Accout number: [id number] Admission Date: 02-10-2020 : 1940 Admission Diagnosis:CEREBRAL INFARCTION, UNSPECIFIED Attending: BEHZAD PHILLIPS Current LOS: 9 Anticipated DC Date: Planned Disposition: [facility] Facility Primary Insurance: HUMANA [employer] PPO [employer] Discharge Planning Comments: SPOKE WITH DAUGHTER MIRANDA AND GAVE HER UPDATE. I ALSO SPOKE TO SUREN[facility] WITH [facility] AND SHOULD HAVE AUTH IN THE MORNING. CM TO FOLLOW AND ASSIST NEEDED. Staining Machine Operator: Shawnee Regalado Appended by Shawnee Regalado on 02/19/2020 17:14 CDT: REFERRAL FAXED TO [facility] AT [phone]. DCP- Discharge Planning Updated by [id number]: Jalyn Boles on 02/17/20 9:[address] Maxine, with [facility] called to verify plan and notified of no imminent DC order. Provided CM contact number for further needed information. DCP- Discharge Planning Updated by [email or web address]: Maggie Conde on 02/16/20 9:[address] CM spoke with patient's daughter Miranda Carmen [phone] and she requested that patient to go to [facility]. CM called facility and spoke with Odalys and they would be awaiting referral. CM faxed clinicals . CM awaiting determination of acceptance.CM will continue to follow and assist as needed with discharge planning / needs. DCP- Discharge Planning Updated by [email or web address]: Hali Barrow on 02/12/20 3:[address] Patient Name: LIBIA SIERRA Admission Status: Elective Accout number: [id number] Admission Date: 02-10-2020 : 1940 Admission Diagnosis: Attending: BEHZAD PHILLIPS Current LOS: 2 Anticipated DC Date: Planned Disposition: Primary Insurance: HUMANA CHOICE PPO M[employer] ADV[employer] Discharge Planning Comments: CM met w/patient and spoke w/patient's daughter, Miranda Carmen, by phone to discuss discharge planning /needs. Patient's daughter states patient lives at home alone and is independent. States home environment is safe. CM discussed IRF, SNF, and Home Health services. Explained that PT and OT will evaluate patient and make recommendations for discharge disposition. Will wait for those evals to determine discharge plan. Daughter in agreement. CM will continue to follow and assist as needed with discharge planning needs. Staining Machine Operator: Hali Barrow DCPIA - Discharge Planning Initial Assessment Updated by [email or web address]: Hali Barrow on 02/12/20 4:04 pm * How many steps to enter\exit or inside your home? 1 w/rail * PCP Dr. Hudson * Pharmacy [facility] on [address] * Preadmission Environment Home Alone * ADLs Independent * Equipment Elevated Toliet Seat Rolling Walker Tub Bench * Other Equipment Rollator, Tub/Shower transfer bench * List name and contact numbers for known caregivers / representatives who currently or will assist patient after discharge: Miranda Carmen, Daughter, * Community resources currently utilized None * Additional services required to return to the preadmission environment? Yes * Can the patient safely return to the preadmission environment? Yes * Has this patient been hospitalized within the prior 30 days at any hospital? No Coverage Notice Reviewer: [id number] Elzbieta Conde Notice Issued Date-Time: 02/16/2020 14:00 Notice Type: Patient Choice Letter Notice Delivered To: Family Member Relationship to Patient: Daughter Branch Logistics Supervisor Name: Miranda Carmen Delivery Method: PHONE - Phone Beti Days: Prior Verbal Notification: Yes Recipient Understood Notice: Yes Recipient Signature: Med Rec Note Co-signed by Attending: Coverage Notice Comment: [facility] Reviewer: [id number] - Leslee Haddad Notice Issued Date-Time: 02/24/2020 11:35 Notice Type: IM Discharge Notice Notice Delivered To: Patient Relationship to Patient: Branch Logistics Supervisor Name: Delivery Method: HAND - Hand Delivered Beti Days: Prior Verbal Notification: Recipient Understood Notice: Yes Recipient Signature: Yes Med Rec Note Co-signed by Attending: Coverage Notice Comment: IMM SERVED Last DP export: 02/24/20 12:52 p Patient Name: LIBIA SIERRA Page 23409 at 1338 All edits/amendments must be made on the electronic document DICTATION DATE: 02/25/207 BRICKLAYER SEWER: ERIK 02/25/20 1337 RPT#: [id number] DC DATE: STATUS: ADM IN [facility] [address] [place] [address] END OF REPORT
--- NOTE | 2020-02-25 13:54 | MORECARE ---
CASE MANAGEMENT DISCHARGE SUMMARY PATIENT: LIBIA SIERRA UNIT: [id number] ADM DATE: 02/10/20 AGE: 79 : 39 SEX: F ROOM/BED: D.2219 AUTHOR: ERWIN,DOC PHYSICIAN: REFERRING PHYSICIAN: BEHZAD PHILLIPS MD DATE OF SERVICE: 02/25/20 Discharge Plan Patient Name: LIBIA SIERRA Facility: [facility]:[place] : 1940 Planned Disposition: Shelter Facility Anticipated Discharge Date: Discharge Date: Expected LOS: Initial Reviewer: [id number] Initial Review Date: 02/12/2020 Generated: 02/25/20 2:54 pm Comments DCP- Discharge Planning Updated by [id number]: Leslee Haddad on 02/25/20 12:[address] Patient will be discharged to [facility] to a Skilled bed. I have called her daughter and let her know they will be picking her up at 3:45 pm DCP- Discharge Planning Updated by [id number]: Leslee Haddad on 02/24/20 12:[address] THEARPY BEGAN AMBULATING PATIENT, SHE BECAME DIZZY AND UNSTEADY CHAIR WAS PROVIDED AND STATED SHE DIDN'T KNOW WHY SHE FEELS THIS WAY HAD EMESIS. PATIENT BACK TO BED, NOCTURNIST PHYSICIAN NOTIFIED NEW ORDERS RECEIVED DC ON HOLD. [facility] NOTIFIED AND PATIENT'S DAUGHTER NOTIFIED DCP- Discharge Planning Updated by [id number]: Leslee Haddad on 02/24/20 10:[address] PATIENT WILL BE DISCHARGING TO [facility] TODAY TO A SKILLED BED. THEY WILL PICK HER UP AT 1330. IMM SERVED AND EXPLAINED. I HAVE CALLED AND SPOKE WITH MIRANDA (PATIENT'S DAUGHTER) TO LET HER KNOW AND I WILL FAX CLINICALS OVER TO [facility] CM TO FOLLOW AND ASSIST DCP- Discharge Planning Updated by [id number]: Leslee Haddad on 02/23/20 10:[address] spoke with Miranda Carmen, patients daughter and updated her on status DCP- Discharge Planning Updated by [id number]: Leslee Haddad on 02/23/20 8:[address] UPDATED CLINICALS FAXED TO [facility], WAITING ON ACCEPTANCE FOR [place] DCP- Discharge Planning Updated by [id number]: Shawnee Regalado on 02/20/20 12:[address] Patient Name: LIBIA SIERRA Admission Status: Elective Accout number: [id number] Admission Date: 02-10-2020 : 1940 Admission Diagnosis:CEREBRAL INFARCTION, UNSPECIFIED Attending: BEHZAD PHILLIPS Current LOS: 10 Anticipated DC Date: Planned Disposition: Shelter Facility Primary Insurance: HUMANA [employer] PPO MCR ADVANT Discharge Planning Comments: [facility] IS PENDING INSURANCE AUTH, POSSIBLY THURSDAY 02/22. Risk Control Consultant: Shawnee Regalado DCP- Discharge Planning Updated by [id number]: Shawnee Regalado on 02/19/20 4:[address] Patient Name: LIBIA SIERRA Admission Status: Elective Accout number: [id number] Admission Date: 02-10-2020 : 1940 Admission Diagnosis:CEREBRAL INFARCTION, UNSPECIFIED Attending: BEHZAD PHILLIPS Current LOS: 9 Anticipated DC Date: Planned Disposition: Shelter Facility Primary Insurance: [employer]NA [employer] PPO MCR ADVANT Discharge Planning Comments: SPOKE WITH DAUGHTER MIRANDA AND GAVE HER UPDATE. I ALSO SPOKE TO SURENDRA WITH [facility] AND SHOULD HAVE AUTH IN THE MORNING. CM TO FOLLOW AND ASSIST NEEDED. Risk Control Consultant: Shawnee Regalado Appended by Shawnee Regalado on 02/19/2020 17:14 CDT: REFERRAL FAXED TO [facility] AT [phone]. DCP- Discharge Planning Updated by [id number]: Jalyn Boles on 02/17/20 9:[address] Maxine, with [facility] called to verify plan and notified of no imminent DC order. Provided CM contact number for further needed information. DCP- Discharge Planning Updated by [email or web address]: Maggie Conde on 02/16/20 9:[address] CM spoke with patient's daughter Miranda Carmen [phone] and she requested that patient to go to [facility]. CM called facility and spoke with Odalys and they would be awaiting referral. CM faxed clinicals . CM awaiting determination of acceptance.CM will continue to follow and assist as needed with discharge planning / needs. DCP- Discharge Planning Updated by [id number]: Hali Barrow on 02/12/20 3:[address] Patient Name: LIBIA SIERRA Admission Status: Elective Accout number: [id number] Admission Date: 02-10-2020 : 1940 Admission Diagnosis: Attending: BEHZAD PHILLIPS Current LOS: 2 Anticipated DC Date: Planned Disposition: Primary Insurance: HUMANA CHOICE PPO MCR ADVANT Discharge Planning Comments: CM met w/patient and spoke w/patient's daughter, Miranda Carmen, by phone to discuss discharge planning /needs. Patient's daughter states patient lives at home alone and is independent. States home environment is safe. CM discussed IRF, SNF, and Home Health services. Explained that PT and OT will evaluate patient and make recommendations for discharge disposition. Will wait for those evals to determine discharge plan. Daughter in agreement. CM will continue to follow and assist as needed with discharge planning needs. Risk Control Consultant: Hali Barrow DCPIA - Discharge Planning Initial Assessment Updated by [id number]: Hali Barrow on 02/12/20 4:04 pm * How many steps to enter\exit or inside your home? 1 w/rail * PCP Dr. Hudson * Pharmacy [facility] on [address] * Preadmission Environment Home Alone * ADLs Independent * Equipment Elevated Toliet Seat Rolling Walker Tub Bench * Other Equipment Rollator, Tub/Shower transfer bench * List name and contact numbers for known caregivers / representatives who currently or will assist patient after discharge: Miranda Carmen, Daughter, * Community resources currently utilized None * Additional services required to return to the preadmission environment? Yes * Can the patient safely return to the preadmission environment? Yes * Has this patient been hospitalized within the prior 30 days at any hospital? No Coverage Notice Reviewer: [id number] Elzbieta Conde Notice Issued Date-Time: 02/16/2020 14:00 Notice Type: Patient Choice Letter Notice Delivered To: Family Member Relationship to Patient: Daughter Research Assoc Name: Miranda Carmen Delivery Method: PHONE - Phone Beti Days: Prior Verbal Notification: Yes Recipient Understood Notice: Yes Recipient Signature: Med Rec Note Co-signed by Attending: Coverage Notice Comment: [facility] Reviewer: [id number] - Leslee Haddad Notice Issued Date-Time: 02/24/2020 11:35 Notice Type: IM Discharge Notice Notice Delivered To: Patient Relationship to Patient: Research Assoc Name: Delivery Method: HAND - Hand Delivered Beti Days: Prior Verbal Notification: Recipient Understood Notice: Yes Recipient Signature: Yes Med Rec Note Co-signed by Attending: Coverage Notice Comment: IMM SERVED Last DP export: 02/25/20 12:38 p Patient Name: LIBIA SIERRA Page 00244 at 1354 All edits/amendments must be made on the electronic document DICTATION DATE: 02/25/20 1354 ENVIRONMENTAL SERVICES ATTENDANT: ERIK 02/25/20 1354 RPT#: [id number] DC DATE: STATUS: ADM IN [facility] [address] [place] [address] END OF REPORT
--- NOTE | 2020-02-25 15:00 | NUR ---
REPORT CALLED TO SAMIRA WRIGHT AT [facility],
--- NOTE | 2020-02-25 15:59 | NUR ---
TAKEN PER W/C TO TRANSPORT TO [facility]
--- NOTE | 2020-02-25 18:19 | NUR ---
OT NOTE: (AM) PT COMPLETED BED MOB TASKS WITH SBA. PT COMPLETED SIDE ROLLING AND SUPINE TO SIT. (PM) PT COMPLETED BED TO BATHROOM ADL MOB WITH CGA. PT COMPLETED TOILETING HYGIENE WITH SBA. PT COMPLETED HAND HYGIENE WITH SBA. [phone] THANK YOU,AMBROSIO WEST
--- NOTE | 2020-02-26 15:17 | MORECARE ---
CASE MANAGEMENT DISCHARGE SUMMARY PATIENT: LIBIA SIERRA UNIT: [id number] ADM DATE: 02/10/20 AGE: 80 : 38 SEX: F ROOM/BED: D.2219 AUTHOR: ERWIN,DOC PHYSICIAN: REFERRING PHYSICIAN: BEHZAD PHILLIPS MD DATE OF SERVICE: 02/26/20 Discharge Plan Patient Name: LIBIA SIERRA Facility: [facility]:[place] : 1940 Planned Disposition: [facility] Facility Anticipated Discharge Date: Discharge Date: 02/25/2020 Expected LOS: 0 Initial Reviewer: [email or web address] Initial Review Date: 02/12/2020 Generated: 02/26/20 4:16 pm Comments DCP- Discharge Planning Updated by [email or web address]: Leslee Haddad on 02/25/20 12:[address] Patient will be discharged to [facility] to a Skilled bed. I have called her daughter and let her know they will be picking her up at 3:45 pm DCP- Discharge Planning Updated by [email or web address]: Leslee Haddad on 02/24/20 12:[address] [facility] BEGAN AMBULATING PATIENT, SHE BECAME DIZZY AND UNSTEADY CHAIR WAS PROVIDED AND STATED SHE DIDN'T KNOW WHY SHE FEELS THIS WAY HAD EMESIS. PATIENT BACK TO BED, LOSS CONTROL MANAGER NOTIFIED NEW ORDERS RECEIVED DC ON HOLD. [facility] NOTIFIED AND PATIENT'S DAUGHTER NOTIFIED DCP- Discharge Planning Updated by [email or web address]: Leslee Haddad on 02/24/20 10:[address] PATIENT WILL BE DISCHARGING TO [facility] TODAY TO A SKILLED BED. THEY WILL PICK HER UP AT 1330. IMM SERVED AND EXPLAINED. I HAVE CALLED AND SPOKE WITH MIRANDA (PATIENT'S DAUGHTER) TO LET HER KNOW AND I WILL FAX CLINICALS OVER TO [facility] CM TO FOLLOW AND ASSIST DCP- Discharge Planning Updated by [email or web address]: Leslee Haddad on 02/23/20 10:[address] spoke with Miranda Carmen, patients daughter and updated her on status DCP- Discharge Planning Updated by [email or web address]: Leslee Haddad on 02/23/20 8:[address] UPDATED CLINICALS FAXED TO [facility], JUAN JOSÉ ON ACCEPTANCE FOR [facility] DCP- Discharge Planning Updated by [email or web address]: Shawnee Regalado on 02/20/20 12:[address] Patient Name: LIBIA SIERRA Admission Status: Elective Accout number: [id number] Admission Date: 02-10-2020 : 1940 Admission Diagnosis:CEREBRAL INFARCTION, UNSPECIFIED Attending: BEHZAD PHILLIPS Current LOS: 10 Anticipated DC Date: Planned Disposition: [facility] Facility Primary Insurance: [employer] (Chapter 11) PPO MCR ADVANT Discharge Planning Comments: [facility] IS PENDING INSURANCE AUTH, POSSIBLY THURSDAY 02/22. Radiographer Angiogram: Shawnee Regalado DCP- Discharge Planning Updated by [email or web address]: Shawnee Regalado on 02/19/20 4:[address] Patient Name: LIBIA SIERRA Admission Status: Elective Accout number: [id number] Admission Date: 02-10-2020 : 1940 Admission Diagnosis:CEREBRAL INFARCTION, UNSPECIFIED Attending: BEHZAD PHILLISP Current LOS: 9 Anticipated DC Date: Planned Disposition: [facility] Facility Primary Insurance: [employer] (Chapter 11) PPO MCR ADVANT Discharge Planning Comments: SPOKE WITH DAUGHTER MIRANDA AND GAVE HER UPDATE. I ALSO SPOKE TO [facility] WITH [facility] AND SHOULD HAVE AUTH IN THE MORNING. CM TO FOLLOW AND ASSIST NEEDED. Radiographer Angiogram: Shawnee Regalado Appended by Shawnee Regalado on 02/19/2020 17:14 CDT: REFERRAL FAXED TO [facility] AT [phone]. DCP- Discharge Planning Updated by [email or web address]: Jalyn Boles on 02/17/20 9:[address] Maxine, with [facility] called to verify plan and notified of no imminent DC order. Provided CM contact number for further needed information. DCP- Discharge Planning Updated by [email or web address]: Maggie Conde on 02/16/20 9:[address] CM spoke with patient's daughter Miranda Carmen [phone] and she requested that patient to go to [facility]. CM called facility and spoke with Odalys and they would be awaiting referral. CM faxed clinicals [phone]. CM awaiting determination of acceptance.CM will continue to follow and assist as needed with discharge planning / needs. DCP- Discharge Planning Updated by [email or web address]: Hali Barrow on 02/12/20 3:[address] Patient Name: LIBIA SIERRA Admission Status: Elective Accout number: [id number] Admission Date: 02-10-2020 : 1940 Admission Diagnosis: Attending: BEHZAD PHILLIPS Current LOS: 2 Anticipated DC Date: Planned Disposition: Primary Insurance: [employer] CHO[employer] PPO [facility] ADVANT Discharge Planning Comments: CM met w/patient and spoke w/patient's daughter, Miranda Carmen, by phone to discuss discharge planning /needs. Patient's daughter states patient lives at home alone and is independent. States home environment is safe. CM discussed IRF, SNF, and Home Health services. Explained that PT and OT will evaluate patient and make recommendations for discharge disposition. Will wait for those evals to determine discharge plan. Daughter in agreement. CM will continue to follow and assist as needed with discharge planning needs. Radiographer Angiogram: Hali Barrow DCPIA - Discharge Planning Initial Assessment Updated by [email or web address]: Hali Barrow on 02/12/20 4:04 pm * How many steps to enter\exit or inside your home? 1 w/rail * PCP Dr. Hudson * Pharmacy [facility] on [address] * Preadmission Environment Home Alone * ADLs Independent * Equipment Elevated [place] Seat Rolling Walker Tub Bench * Other Equipment Rollator, Tub/Shower transfer bench * List name and contact numbers for known caregivers / representatives who currently or will assist patient after discharge: Miranda Carmen, Daughter, * Community resources currently utilized None * Additional services required to return to the preadmission environment? Yes * Can the patient safely return to the preadmission environment? Yes * Has this patient been hospitalized within the prior 30 days at any hospital? No Coverage Notice Reviewer: [id number] Elzbieta Conde Notice Issued Date-Time: 02/16/2020 14:00 Notice Type: Patient Choice Letter Notice Delivered To: Family Member Relationship to Patient: Daughter Rn Burn Name: Miranda Carmen Delivery Method: PHONE - Phone Beti Days: Prior Verbal Notification: Yes Recipient Understood Notice: Yes Recipient Signature: Med Rec Note Co-signed by Attending: Coverage Notice Comment: [facility] Reviewer: [email or web address] Elzbieta Haddad Notice Issued Date-Time: 02/24/2020 11:35 Notice Type: IM Discharge Notice Notice Delivered To: Patient Relationship to Patient: Rn Burn Name: Delivery Method: HAND - Hand Delivered Beti Days: Prior Verbal Notification: Recipient Understood Notice: Yes Recipient Signature: Yes Med Rec Note Co-signed by Attending: Coverage Notice Comment: IMM SERVED Last DP export: 02/25/20 12:54 p Patient Name: LIBIA SIERRA Page [id number] at 1517 All edits/amendments must be made on the electronic document DICTATION DATE: 02/26/20 1516 VEHICLE DETAILER: ERIK 02/26/20 1516 RPT#: [id number] DC DATE:02/25/20 STATUS: DIS IN [facility] [address] [place] [address] END OF REPORT
== END 2020-02-25 16:00 | DRG 23 ==
LOC: D.M2 13:31 → D.ICU 13:34 → D.MS 14:17
PROVIDERS: Family Medicine; Family Medicine Adult Medicine; Internal Medicine Nephrology; Neurological Surgery; ADMIT Family Medicine; ATTEND Family Medicine
PROC: 00N00ZZ Release Brain, Open Approach (ICD-10-PCS; principal; 2020-02-12 07:30)
DX: I63.9 Cerebral infarction, unspecified (principal); G93.6 Cerebral edema; G93.5 Compression of brain; N39.0 Urinary tract infection, site not specified; I10 Essential (primary) hypertension; I48.91 Unspecified atrial fibrillation; E78.5 Hyperlipidemia, unspecified; S05.11XA Contusion of eyeball and orbital tissues, right eye, initial encounter; W18.30XA Fall on same level, unspecified, initial encounter; E03.9 Hypothyroidism, unspecified; Z86.73 Personal history of transient ischemic attack (TIA), and cerebral infarction without residual deficits; F32.9 Major depressive disorder, single episode, unspecified; F41.9 Anxiety disorder, unspecified